=== PATIENT | female | born 1945 | race African-American/Black ===

== ENCOUNTER 2022-08-26 19:41 | Inpatient (IN) | payer OTHER ==
[~2022-08-26] VITALS: Ht 154.9 cm; Wt 49.4 kg
[2022-08-26 19:52] VITALS: BP_SYST 147
[2022-08-26 21:12] LABS: ANION GAP -1 (5-15); CALCIUM 9.2 mg/dL (8.4-11.0); CHLORIDE 96 mmol/L (98-107); CREATININE 1.28 mg/dL (0.55-1.30); GLUCOSE 84 mg/dL (70-99); UREA NITROGEN, BLOOD 10 mg/dL (8-21)
[2022-08-26 21:13] LABS: BASOPHILS % (AUTO) 1.1 % (0.0-2.0); EOSINOPHILS % (AUTO) 0.7 % (0.0-4.0); HEMATOCRIT 22.8 % (36-48); HEMOGLOBIN 7.9 g/dL (12.0-16.0); LYMPHOCYTES # (AUTO) 0.5 K/uL (1.0-5.5); LYMPHOCYTES % (AUTO) 17.2 % (20.5-51.5); MEAN CORPUSCULAR HEMOGLOBIN 31 pg (27-31); MEAN CORPUSCULAR HGB CONC 35 % (32-36); MEAN CORPUSCULAR VOLUME 90 fL (79.0-98.0); MONOCYTES # (AUTO) 0.3 K/uL (0.0-1.0); MONOCYTES % (AUTO) 11.8 % (1.7-9.3); NEUTROPHILS # (AUTO) 1.9 K/uL (1.8-7.7); NEUTROPHILS % (AUTO) 69.2 % (40.0-70.0); PLATELET COUNT (AUTO) 91 K/uL (130-430); RED BLOOD CELL COUNT(AUTO) 2.52 MIL/uL (4.2-6.2); RED CELL DISTRIBUTION WIDTH 20.2 % (9.0-15.0); WHITE BLOOD COUNT (AUTO) 2.7 K/uL (4.8-10.8)
[2022-08-26 21:16] LABS: ALANINE AMINOTRANSFERASE 9 U/L (12-78); ALBUMIN 2.5 g/dL (3.4-4.8); ASPARTATE AMINOTRANSFERASE 22 U/L (10-37); TOTAL BILIRUBIN 1.2 mg/dL (0.0-1.0)
[2022-08-26] MEDS ORDERED: KCL 20 mEq in 100 mL (PREMIX) 100 ML IV ONE (21:30)
[2022-08-26] MEDS ORDERED: POTASSIUM CHLORIDE 20 MEQ/PKT PACKET PO ONE (21:30)
[2022-08-26 22:00] LABS: INR 1.1 (0.8-1.2); PROTHROMBIN TIME 11.4 SECS (9.5-12.5)
[2022-08-26] MEDS ORDERED: NACL 0.9% 500 ML IV ONE (22:45)
[2022-08-27] MEDS ORDERED: POTASSIUM CHLORIDE 20 MEQ/PKT PACKET PO ONE (00:30)
[2022-08-27] MEDS ORDERED: POTASSIUM CHLORIDE 20 MEQ in NS 250 ML IV ONE ×4 (00:30)
[2022-08-27] MEDS ORDERED: TRIA1TAB96 PO (01:12)
[2022-08-27] MEDS ORDERED: PRO40 PO (01:12)
[2022-08-27] MEDS ORDERED: ISOS20TA8 (01:12)
[2022-08-27] MEDS ORDERED: MAGN400T29 PO (01:12)
[2022-08-27] MEDS ORDERED: ACET160L47 PO (01:12)
[2022-08-27] MEDS ORDERED: MIRT-114 PO (01:12)
[2022-08-27] MEDS ORDERED: DOCU100T10 PO (01:12)
[2022-08-27] MEDS ORDERED: AMLO5TAB4 PO (01:12)
[2022-08-27] MEDS ORDERED: FLUT16SP16 NAS (01:12)
[2022-08-27] MEDS ORDERED: HYDR100T25 PO (01:12)
[2022-08-27] MEDS ORDERED: ATEN-168 PO (01:12)
[2022-08-27] MEDS ORDERED: AZEL6DRO5 BOTH EYES (01:12)
[2022-08-27] MEDS ORDERED: HYDR15SO5 PO (01:12)
[2022-08-27] MEDS ORDERED: ONDA8TAB9 PO (01:12)
[2022-08-27] MEDS ORDERED: PROC-14 PO (01:12)
[2022-08-27] MEDS ORDERED: PRED-531 PO (01:12)
[2022-08-27] MEDS ORDERED: LIP40 PO (01:12)
[2022-08-27] MEDS ORDERED: KCL 20 mEq in 100 mL (PREMIX) 100 ML IV ONE ×2 (01:30→03:30)
[2022-08-27] MEDS: NACL 0.9% 1,000 ML IV SCH ×2 (01:47→22:49)
[2022-08-27 04:54] VITALS: BP_SYST 158
[2022-08-27 07:34] LABS: ANION GAP 3 (5-15); CALCIUM 9.2 mg/dL (8.4-11.0); CHLORIDE 97 mmol/L (98-107); CREATININE 1.16 mg/dL (0.55-1.30); GLUCOSE 74 mg/dL (70-99); UREA NITROGEN, BLOOD 10 mg/dL (8-21)
[2022-08-27 07:43] LABS: BASOPHILS % (AUTO) 0.8 % (0.0-2.0); EOSINOPHILS % (AUTO) 0.5 % (0.0-4.0); HEMATOCRIT 28.9 % (36-48); HEMOGLOBIN 9.8 g/dL (12.0-16.0); LYMPHOCYTES # (AUTO) 0.6 K/uL (1.0-5.5); MEAN CORPUSCULAR HEMOGLOBIN 31 pg (27-31); MEAN CORPUSCULAR HGB CONC 34 % (32-36); MEAN CORPUSCULAR VOLUME 91 fL (79.0-98.0); MONOCYTES # (AUTO) 0.4 K/uL (0.0-1.0); MONOCYTES % (AUTO) 11.9 % (1.7-9.3); NEUTROPHILS # (AUTO) 2.2 K/uL (1.8-7.7); NEUTROPHILS % (AUTO) 67.8 % (40.0-70.0); PLATELET COUNT (AUTO) 94 K/uL (130-430); RED BLOOD CELL COUNT(AUTO) 3.19 MIL/uL (4.2-6.2); RED CELL DISTRIBUTION WIDTH 20.1 % (9.0-15.0)
[2022-08-27 08:01] LABS: WHITE BLOOD COUNT (AUTO) 3.3 K/uL (4.8-10.8)
[2022-08-27] MEDS ORDERED: PROCHLORPERAZINE MALEATE 10 MG TABLET PO PRN (10:00)
[2022-08-27] MEDS ORDERED: ACETAMINOPHEN 650 MG/20.3 ML UDC PO PRN (10:45)
[2022-08-27] MEDS ORDERED: ONDANSETRON 4 MG ODT TAB PO PRN (10:45)
[2022-08-27] MEDS ORDERED: amLODIPine BESYLATE 5 MG TABLET PO ONE (11:00)
[2022-08-27] MEDS ORDERED: predniSONE 20 MG TABLET PO ONE (11:00)
[2022-08-27] MEDS ORDERED: TRIAMTERENE/HYDROCHLOROTHIAZID 1 CAP CAPSULE (DYAZIDE37.5/25) PO ONE (11:00)
[2022-08-27] MEDS ORDERED: hydrALAZINE HCL 25 MG TABLET PO ONE (11:00)
[2022-08-27] MEDS ORDERED: ATENOLOL 50 MG TABLET (TENORMIN) PO ONE (11:00)
[2022-08-27] MEDS ORDERED: DOCUSATE SODIUM 100 MG CAPSULE PO ONE (11:00)
[2022-08-27] MEDS ORDERED: ATORVASTATIN 20 MG TABLET PO ONE (11:00)
[2022-08-27 13:44] VITALS: BP_SYST 159
[2022-08-27 16:00] VITALS: BP_SYST 105
[2022-08-27] MEDS: MIRTAZAPINE 15 MG TABLET PO SCH (17:25)
[2022-08-27 20:00] VITALS: BP_SYST 129
[2022-08-27] MEDS: predniSONE 20 MG TABLET PO SCH (22:51)
[2022-08-27] MEDS: FLUTICASONE PROPIONATE 50 mCg/SPRAY 16 GM NAS SCH (22:51)
[2022-08-27] MEDS: MAGNESIUM OXIDE 400 MG TABLET PO SCH (23:02)
[2022-08-28 00:29] VITALS: BP_SYST 138
[2022-08-28 07:38] LABS: ANION GAP 2 (5-15); CALCIUM 8.8 mg/dL (8.4-11.0); CHLORIDE 98 mmol/L (98-107); CREATININE 1.69 mg/dL (0.55-1.30); GLUCOSE 77 mg/dL (70-99); TOTAL IRON BIND. CAPACITY 95 ug/dL (250-450); UREA NITROGEN, BLOOD 12 mg/dL (8-21)
[2022-08-28 08:00] VITALS: BP_SYST 137
[2022-08-28 08:01] LABS: BASOPHILS % (AUTO) 0.5 % (0.0-2.0); HEMATOCRIT 27.2 % (36-48); HEMOGLOBIN 9.3 g/dL (12.0-16.0); LYMPHOCYTES # (AUTO) 0.5 K/uL (1.0-5.5); LYMPHOCYTES % (AUTO) 15.5 % (20.5-51.5); MEAN CORPUSCULAR HEMOGLOBIN 31 pg (27-31); MEAN CORPUSCULAR HGB CONC 34 % (32-36); MEAN CORPUSCULAR VOLUME 90 fL (79.0-98.0); MONOCYTES # (AUTO) 0.4 K/uL (0.0-1.0); MONOCYTES % (AUTO) 12.7 % (1.7-9.3); NEUTROPHILS # (AUTO) 2.3 K/uL (1.8-7.7); NEUTROPHILS % (AUTO) 71.3 % (40.0-70.0); PLATELET COUNT (AUTO) 106 K/uL (130-430); RED BLOOD CELL COUNT(AUTO) 3.02 MIL/uL (4.2-6.2); RED CELL DISTRIBUTION WIDTH 20.2 % (9.0-15.0); RETICULOCYTE COUNT 1.3 % (0.5-1.5)
[2022-08-28] MEDS: PATIENT'S OWN TOPICAL OP SCH (09:00)
[2022-08-28] MEDS ORDERED: NON-FORMULARY MEDICATION (Azelastine Hcl 1 DROP) BOTH EYES SCH (09:00)
[2022-08-28] MEDS: TRIAMTERENE/HYDROCHLOROTHIAZID 1 CAP CAPSULE (DYAZIDE37.5/25) PO SCH (09:11)
[2022-08-28] MEDS: ATORVASTATIN 20 MG TABLET PO SCH (09:12)
[2022-08-28] MEDS: amLODIPine BESYLATE 5 MG TABLET PO SCH (09:12)
[2022-08-28] MEDS: ATENOLOL 50 MG TABLET (TENORMIN) PO SCH (09:13)
[2022-08-28] MEDS: hydrALAZINE HCL 25 MG TABLET PO SCH (09:13)
[2022-08-28] MEDS: PANTOPRAZOLE SODIUM 40 MG TAB PO SCH (09:14)
[2022-08-28] MEDS: DOCUSATE SODIUM 100 MG CAPSULE PO SCH (09:14)
[2022-08-28] MEDS: predniSONE 20 MG TABLET PO SCH ×2 (09:15→21:58)
[2022-08-28] MEDS: MAGNESIUM OXIDE 400 MG TABLET PO SCH ×2 (09:15→21:58)
[2022-08-28] MEDS: FLUTICASONE PROPIONATE 50 mCg/SPRAY 16 GM NAS SCH ×2 (09:35→21:57)
[2022-08-28 10:04] LABS: WHITE BLOOD COUNT (AUTO) 3.2 K/uL (4.8-10.8)
[2022-08-28 12:00] VITALS: BP_SYST 98
[2022-08-28 16:00] VITALS: BP_SYST 101
[2022-08-28] MEDS: NACL 0.9% 1,000 ML IV SCH (16:30)
[2022-08-28] MEDS: MIRTAZAPINE 15 MG TABLET PO SCH (17:46)
[2022-08-28 20:00] VITALS: BP_SYST 138
[2022-08-28] MEDS: guaiFENesin ER 600 MG TAB PO SCH (21:58)
[2022-08-29] VITALS: BP_SYST 123
[2022-08-29 07:22] LABS: BASOPHILS % (AUTO) 0.3 % (0.0-2.0); HEMATOCRIT 27.7 % (36-48); HEMOGLOBIN 9.5 g/dL (12.0-16.0); LYMPHOCYTES # (AUTO) 0.5 K/uL (1.0-5.5); LYMPHOCYTES % (AUTO) 14.4 % (20.5-51.5); MEAN CORPUSCULAR HEMOGLOBIN 31 pg (27-31); MEAN CORPUSCULAR HGB CONC 34 % (32-36); MEAN CORPUSCULAR VOLUME 91 fL (79.0-98.0); MONOCYTES # (AUTO) 0.3 K/uL (0.0-1.0); MONOCYTES % (AUTO) 9.1 % (1.7-9.3); NEUTROPHILS # (AUTO) 2.7 K/uL (1.8-7.7); NEUTROPHILS % (AUTO) 76.2 % (40.0-70.0); PLATELET COUNT (AUTO) 112 K/uL (130-430); RED BLOOD CELL COUNT(AUTO) 3.06 MIL/uL (4.2-6.2); RED CELL DISTRIBUTION WIDTH 20.3 % (9.0-15.0); WHITE BLOOD COUNT (AUTO) 3.6 K/uL (4.8-10.8)
[2022-08-29 08:05] VITALS: BP_SYST 145
[2022-08-29 08:06] LABS: FOLATE (FOLIC ACID) 6.4 ng/mL (>3.0)
[2022-08-29] MEDS: FLUTICASONE PROPIONATE 50 mCg/SPRAY 16 GM NAS SCH ×2 (09:00→21:35)
[2022-08-29] MEDS: PATIENT'S OWN TOPICAL OP SCH (09:00)
[2022-08-29] MEDS: TRIAMTERENE/HYDROCHLOROTHIAZID 1 CAP CAPSULE (DYAZIDE37.5/25) PO SCH (09:00)
[2022-08-29] MEDS: ATORVASTATIN 20 MG TABLET PO SCH (09:12)
[2022-08-29] MEDS: PANTOPRAZOLE SODIUM 40 MG TAB PO SCH (09:13)
[2022-08-29] MEDS: ENOXAPARIN SODIUM 30 MG/0.3 ML SYRINGE SUBCUT SCH (09:13)
[2022-08-29] MEDS: DOCUSATE SODIUM 100 MG CAPSULE PO SCH (09:17)
[2022-08-29] MEDS: hydrALAZINE HCL 25 MG TABLET PO SCH (09:17)
[2022-08-29] MEDS: ATENOLOL 50 MG TABLET (TENORMIN) PO SCH (09:18)
[2022-08-29] MEDS: guaiFENesin ER 600 MG TAB PO SCH ×2 (09:19→21:32)
[2022-08-29] MEDS: MAGNESIUM OXIDE 400 MG TABLET PO SCH ×2 (09:19→21:33)
[2022-08-29] MEDS: predniSONE 20 MG TABLET PO SCH ×2 (09:20→21:32)
[2022-08-29] MEDS: amLODIPine BESYLATE 5 MG TABLET PO SCH (09:21)
[2022-08-29 11:29] VITALS: BP_SYST 93
[2022-08-29] MEDS: NACL 0.9% 1,000 ML IV SCH (16:12)
[2022-08-29 16:57] VITALS: BP_SYST 104
[2022-08-29] MEDS: MIRTAZAPINE 15 MG TABLET PO SCH (17:36)
[2022-08-29 20:00] VITALS: BP_SYST 114
[2022-08-30 00:11] VITALS: BP_SYST 110
[2022-08-30 08:00] VITALS: BP_SYST 118
[2022-08-30] MEDS: amLODIPine BESYLATE 5 MG TABLET PO SCH (09:00)
[2022-08-30] MEDS: PATIENT'S OWN TOPICAL OP SCH (09:00)
[2022-08-30] MEDS: hydrALAZINE HCL 25 MG TABLET PO SCH (09:00)
[2022-08-30] MEDS: ATENOLOL 50 MG TABLET (TENORMIN) PO SCH (09:00)
[2022-08-30] MEDS: predniSONE 20 MG TABLET PO SCH ×2 (09:03→20:43)
[2022-08-30] MEDS: PANTOPRAZOLE SODIUM 40 MG TAB PO SCH (09:03)
[2022-08-30] MEDS: MAGNESIUM OXIDE 400 MG TABLET PO SCH ×2 (09:04→20:43)
[2022-08-30] MEDS: ATORVASTATIN 20 MG TABLET PO SCH (09:05)
[2022-08-30] MEDS: TRIAMTERENE/HYDROCHLOROTHIAZID 1 CAP CAPSULE (DYAZIDE37.5/25) PO SCH (09:06)
[2022-08-30] MEDS: guaiFENesin ER 600 MG TAB PO SCH ×2 (09:06→20:43)
[2022-08-30 09:21] LABS: CHLORIDE 102 mmol/L (98-107)
[2022-08-30] MEDS: ENOXAPARIN SODIUM 30 MG/0.3 ML SYRINGE SUBCUT SCH (09:22)
[2022-08-30 09:52] LABS: ANION GAP 8 (5-15); CALCIUM 8.4 mg/dL (8.4-11.0); GLUCOSE 78 mg/dL (70-99); UREA NITROGEN, BLOOD 29 mg/dL (8-21)
[2022-08-30] MEDS: FLUTICASONE PROPIONATE 50 mCg/SPRAY 16 GM NAS SCH ×2 (09:54→20:42)
[2022-08-30] MEDS: DOCUSATE SODIUM 100 MG CAPSULE PO SCH (09:57)
[2022-08-30 10:37] LABS: CREATININE 3.96 mg/dL (0.55-1.30)
[2022-08-30 11:25] VITALS: BP_SYST 120
[2022-08-30 16:25] VITALS: BP_SYST 108; BP_SYST 111
[2022-08-30] MEDS: MIRTAZAPINE 15 MG TABLET PO SCH (17:48)
[2022-08-30 20:00] VITALS: BP_SYST 114
[2022-08-31] VITALS: BP_SYST 111
[2022-08-31 06:49] LABS: BASOPHILS % (AUTO) 0.2 % (0.0-2.0); EOSINOPHILS % (AUTO) 0.3 % (0.0-4.0); HEMATOCRIT 27.9 % (36-48); HEMOGLOBIN 9.2 g/dL (12.0-16.0); LYMPHOCYTES # (AUTO) 0.6 K/uL (1.0-5.5); LYMPHOCYTES % (AUTO) 13.2 % (20.5-51.5); MEAN CORPUSCULAR HEMOGLOBIN 30 pg (27-31); MEAN CORPUSCULAR HGB CONC 33 % (32-36); MEAN CORPUSCULAR VOLUME 91 fL (79.0-98.0); MONOCYTES # (AUTO) 0.4 K/uL (0.0-1.0); MONOCYTES % (AUTO) 8.7 % (1.7-9.3); NEUTROPHILS # (AUTO) 3.2 K/uL (1.8-7.7); NEUTROPHILS % (AUTO) 77.6 % (40.0-70.0); PLATELET COUNT (AUTO) 128 K/uL (130-430); RED BLOOD CELL COUNT(AUTO) 3.06 MIL/uL (4.2-6.2); RED CELL DISTRIBUTION WIDTH 20.9 % (9.0-15.0); WHITE BLOOD COUNT (AUTO) 4.2 K/uL (4.8-10.8)
[2022-08-31 07:00] LABS: ANION GAP 10 (5-15); CALCIUM 8.5 mg/dL (8.4-11.0); CHLORIDE 102 mmol/L (98-107); CREATININE 3.85 mg/dL (0.55-1.30); GLUCOSE 63 mg/dL (70-99); PHOSPHORUS 4.5 mg/dL (2.7-4.5); UREA NITROGEN, BLOOD 34 mg/dL (8-21)
[2022-08-31 08:00] VITALS: BP_SYST 107
[2022-08-31] MEDS: predniSONE 20 MG TABLET PO SCH ×2 (09:00→21:00)
[2022-08-31] MEDS: PANTOPRAZOLE SODIUM 40 MG TAB PO SCH (09:00)
[2022-08-31] MEDS: hydrALAZINE HCL 25 MG TABLET PO SCH (09:00)
[2022-08-31] MEDS: MAGNESIUM OXIDE 400 MG TABLET PO SCH ×2 (09:00→21:00)
[2022-08-31] MEDS: amLODIPine BESYLATE 5 MG TABLET PO SCH (09:00)
[2022-08-31] MEDS: guaiFENesin ER 600 MG TAB PO SCH ×2 (09:00→21:00)
[2022-08-31] MEDS: ATORVASTATIN 20 MG TABLET PO SCH (09:00)
[2022-08-31] MEDS: DOCUSATE SODIUM 100 MG CAPSULE PO SCH (09:00)
[2022-08-31] MEDS: ATENOLOL 50 MG TABLET (TENORMIN) PO SCH (09:00)
[2022-08-31] MEDS: PATIENT'S OWN TOPICAL OP SCH (09:00)
[2022-08-31 10:21] LABS: BILIRUBIN,URINE NEGATIVE (NEGATIVE); BLOOD, URINE NEGATIVE (NEGATIVE); CLARITY/URINE CLEAR (CLEAR); COLOR,URINE YELLOW (YELLOW); GLUCOSE,URINE NEGATIVE (NEGATIVE); KETONES,URINE TRACE (NEGATIVE); LEUKOCYTE ESTERASE ,URINE 1+ (NEGATIVE); NITRITE, URINE NEGATIVE (NEGATIVE); PH,URINE 6.5 (5.0-8.0); PROTEIN URINE NEGATIVE (NEGATIVE); UROBILINOGEN,URINE 0.2 (0.2-1.0)
[2022-08-31] MEDS: FLUTICASONE PROPIONATE 50 mCg/SPRAY 16 GM NAS SCH ×2 (10:21→21:11)
[2022-08-31] MEDS: ENOXAPARIN SODIUM 30 MG/0.3 ML SYRINGE SUBCUT SCH (10:21)
[2022-08-31 11:01] LABS: BACTERIA,URINE FEW /HPF (None Seen); MUCUS,URINE None Seen /LPF (None Seen); RBC,URINE 0-3 /HPF (0-3); WBC,URINE 0-3 /HPF (0-3)
[2022-08-31] MEDS: NACL 0.9% 1,000 ML IV SCH (11:21)
[2022-08-31 12:29] VITALS: BP_SYST 138
[2022-08-31] MEDS ORDERED: POTASSIUM CHLORIDE 40 MEQ in NS 250 ML IV ONE (16:00)
[2022-08-31 16:25] VITALS: BP_SYST 123
[2022-08-31] MEDS: MIRTAZAPINE 15 MG TABLET PO SCH (17:33)
[2022-08-31 20:00] VITALS: BP_SYST 135
[2022-08-31] MEDS: levoFLOXacin 250 MG TABLET PO SCH (21:00)
[2022-08-31 21:14] LABS: URINE SODIUM, RANDOM 110 mmol/L (40-220)
[2022-09-01 00:55] VITALS: BP_SYST 136
[2022-09-01 06:18] LABS: BASOPHILS % (AUTO) 0.3 % (0.0-2.0); EOSINOPHILS % (AUTO) 0.4 % (0.0-4.0); HEMATOCRIT 26.7 % (36-48); LYMPHOCYTES # (AUTO) 0.5 K/uL (1.0-5.5); LYMPHOCYTES % (AUTO) 15.4 % (20.5-51.5); MEAN CORPUSCULAR HEMOGLOBIN 31 pg (27-31); MEAN CORPUSCULAR HGB CONC 34 % (32-36); MEAN CORPUSCULAR VOLUME 91 fL (79.0-98.0); MONOCYTES # (AUTO) 0.3 K/uL (0.0-1.0); MONOCYTES % (AUTO) 10.3 % (1.7-9.3); NEUTROPHILS # (AUTO) 2.5 K/uL (1.8-7.7); NEUTROPHILS % (AUTO) 73.6 % (40.0-70.0); PLATELET COUNT (AUTO) 118 K/uL (130-430); RED BLOOD CELL COUNT(AUTO) 2.92 MIL/uL (4.2-6.2); RED CELL DISTRIBUTION WIDTH 20.6 % (9.0-15.0); WHITE BLOOD COUNT (AUTO) 3.4 K/uL (4.8-10.8)
[2022-09-01 07:27] LABS: ANION GAP 9 (5-15); CALCIUM 7.9 mg/dL (8.4-11.0); CHLORIDE 105 mmol/L (98-107); CREATININE 3.37 mg/dL (0.55-1.30); GLUCOSE 51 mg/dL (70-99); UREA NITROGEN, BLOOD 36 mg/dL (8-21)
[2022-09-01 08:00] VITALS: BP_SYST 138
[2022-09-01] MEDS ORDERED: POTASSIUM CHLORIDE 40 MEQ in NS 250 ML IV ONE (08:00)
[2022-09-01] MEDS: MAGNESIUM OXIDE 400 MG TABLET PO SCH ×2 (09:00→21:00)
[2022-09-01] MEDS: predniSONE 20 MG TABLET PO SCH ×2 (09:00→21:00)
[2022-09-01] MEDS: guaiFENesin ER 600 MG TAB PO SCH ×2 (09:00→21:00)
[2022-09-01] MEDS: DOCUSATE SODIUM 100 MG CAPSULE PO SCH (09:00)
[2022-09-01] MEDS: PATIENT'S OWN TOPICAL OP SCH (09:00)
[2022-09-01] MEDS: PANTOPRAZOLE SODIUM 40 MG TAB PO SCH (09:00)
[2022-09-01] MEDS: amLODIPine BESYLATE 5 MG TABLET PO SCH (09:00)
[2022-09-01] MEDS: ATENOLOL 50 MG TABLET (TENORMIN) PO SCH (09:00)
[2022-09-01] MEDS: ATORVASTATIN 20 MG TABLET PO SCH (09:00)
[2022-09-01] MEDS: hydrALAZINE HCL 25 MG TABLET PO SCH (09:00)
[2022-09-01] MEDS: ENOXAPARIN SODIUM 30 MG/0.3 ML SYRINGE SUBCUT SCH (09:56)
[2022-09-01] MEDS: NACL 0.9% 1,000 ML IV SCH (09:57)
[2022-09-01] MEDS: FLUTICASONE PROPIONATE 50 mCg/SPRAY 16 GM NAS SCH ×2 (09:58→22:00)
[2022-09-01] MEDS ORDERED: CEFAZOLIN 1 GM IVPB PREMIX 50 ML IV ONE (10:15)
[2022-09-01 12:00] VITALS: BP_SYST 137; BP_SYST 201
[2022-09-01 14:34] VITALS: BP_SYST 138
[2022-09-01] MEDS: D5NS 1,000 ML IV SCH (15:28)
[2022-09-01 16:00] VITALS: BP_SYST 128
[2022-09-01] MEDS ORDERED: DEXTROSE 50% JECT 50 ML DISP.SYRIN IVP ONE ×2 (16:45)
[2022-09-01] MEDS: MIRTAZAPINE 15 MG TABLET PO SCH (19:30)
[2022-09-01] MEDS: levoFLOXacin 250 MG TABLET PO SCH (21:00)
[2022-09-02] VITALS (7 sets, daily range): BP systolic 114–157
[2022-09-02] MEDS: D5NS 1,000 ML IV SCH ×2 (01:53→11:30)
[2022-09-02] MEDS ORDERED: SIMETHICONE 40 MG/0.6 ML ML ONE (06:27)
[2022-09-02 06:49] LABS: ANION GAP 4 (5-15); CHLORIDE 109 mmol/L (98-107); CREATININE 2.41 mg/dL (0.55-1.30); GLUCOSE 109 mg/dL (70-99); UREA NITROGEN, BLOOD 31 mg/dL (8-21)
[2022-09-02 06:55] LABS: BASOPHILS % (AUTO) 0.5 % (0.0-2.0); EOSINOPHILS % (AUTO) 1.7 % (0.0-4.0); HEMOGLOBIN 9.1 g/dL (12.0-16.0); LYMPHOCYTES # (AUTO) 0.4 K/uL (1.0-5.5); LYMPHOCYTES % (AUTO) 17.3 % (20.5-51.5); MEAN CORPUSCULAR HEMOGLOBIN 31 pg (27-31); MEAN CORPUSCULAR HGB CONC 34 % (32-36); MEAN CORPUSCULAR VOLUME 92 fL (79.0-98.0); MONOCYTES # (AUTO) 0.3 K/uL (0.0-1.0); MONOCYTES % (AUTO) 11.1 % (1.7-9.3); NEUTROPHILS # (AUTO) 1.7 K/uL (1.8-7.7); NEUTROPHILS % (AUTO) 69.4 % (40.0-70.0); PLATELET COUNT (AUTO) 116 K/uL (130-430); RED BLOOD CELL COUNT(AUTO) 2.95 MIL/uL (4.2-6.2); RED CELL DISTRIBUTION WIDTH 20.7 % (9.0-15.0); WHITE BLOOD COUNT (AUTO) 2.4 K/uL (4.8-10.8)
[2022-09-02] MEDS ORDERED: ONDANSETRON HCL 4 MG/2 ML VIAL ONE (07:49)
[2022-09-02] MEDS ORDERED: DEXAMETHASONE SOD PHOSPHATE 4 MG/ML VIAL ONE (07:49)
[2022-09-02] MEDS ORDERED: NS 1000 ML IV.SOLN IV ONE (07:49)
[2022-09-02] MEDS ORDERED: hydrALAZINE HCL 20 MG/ML VIAL ONE (07:49)
[2022-09-02] MEDS ORDERED: METOCLOPRAMIDE HCL 10 MG/2 ML VIAL ONE (07:49)
[2022-09-02] MEDS ORDERED: PROPOFOL 200MG/ 20ML VIAL (DIPRIVAN) IV ONE (07:49)
[2022-09-02] MEDS ORDERED: CEFAZOLIN 1 GM IVPB PREMIX 50 ML IV ONE (08:00)
[2022-09-02 08:13] LABS: INR 0.9 (0.8-1.2); PROTHROMBIN TIME 9.9 SECS (9.5-12.5)
[2022-09-02] MEDS ORDERED: hydrALAZINE HCL 20 MG/ML VIAL IVP PRN (08:45)
[2022-09-02] MEDS ORDERED: NACL 0.9% 1,000 ML IV SCH (08:45)
[2022-09-02] MEDS: PATIENT'S OWN TOPICAL OP SCH (09:00)
[2022-09-02] MEDS: DOCUSATE SODIUM 100 MG CAPSULE PO SCH (09:00)
[2022-09-02] MEDS: hydrALAZINE HCL 25 MG TABLET PO SCH (09:00)
[2022-09-02] MEDS: MAGNESIUM OXIDE 400 MG TABLET PO SCH ×2 (09:48→19:56)
[2022-09-02] MEDS: ATORVASTATIN 20 MG TABLET PO SCH (09:49)
[2022-09-02] MEDS: predniSONE 20 MG TABLET PO SCH ×2 (09:49→19:56)
[2022-09-02] MEDS: PANTOPRAZOLE SODIUM 40 MG TAB PO SCH (09:50)
[2022-09-02] MEDS: ENOXAPARIN SODIUM 30 MG/0.3 ML SYRINGE SUBCUT SCH (09:50)
[2022-09-02] MEDS: guaiFENesin ER 600 MG TAB PO SCH ×2 (09:50→19:55)
[2022-09-02] MEDS: ATENOLOL 50 MG TABLET (TENORMIN) PO SCH (09:53)
[2022-09-02] MEDS: amLODIPine BESYLATE 5 MG TABLET PO SCH (09:53)
[2022-09-02] MEDS: FLUTICASONE PROPIONATE 50 mCg/SPRAY 16 GM NAS SCH ×2 (09:55→19:56)
[2022-09-02] MEDS ORDERED: POTASSIUM CHLORIDE 40 MEQ in NS 250 ML IV ONE (15:00)
[2022-09-02] MEDS: MIRTAZAPINE 15 MG TABLET PO SCH (17:48)
[2022-09-02] MEDS: NACL 0.9% 1,000 ML IV SCH (18:45)
[2022-09-02] MEDS: levoFLOXacin 250 MG TABLET PO SCH (19:55)
[2022-09-03 07:00] VITALS: BP_SYST 118
[2022-09-03] MEDS: PANTOPRAZOLE SODIUM 40 MG TAB PO SCH (08:02)
[2022-09-03] MEDS: MAGNESIUM OXIDE 400 MG TABLET PO SCH ×2 (08:03→20:00)
[2022-09-03] MEDS: ATORVASTATIN 20 MG TABLET PO SCH (08:03)
[2022-09-03] MEDS: predniSONE 20 MG TABLET PO SCH ×2 (08:03→20:00)
[2022-09-03] MEDS: guaiFENesin ER 600 MG TAB PO SCH ×2 (08:04→20:01)
[2022-09-03] MEDS: HYDROcodone/ACETAMIN 7.5-325 MG TAB PO PRN (08:07)
[2022-09-03] MEDS: FLUTICASONE PROPIONATE 50 mCg/SPRAY 16 GM NAS SCH ×2 (08:08→20:01)
[2022-09-03 08:10] LABS: BASOPHILS % (AUTO) 0.2 % (0.0-2.0); HEMATOCRIT 29.9 % (36-48); LYMPHOCYTES # (AUTO) 0.5 K/uL (1.0-5.5); LYMPHOCYTES % (AUTO) 11.5 % (20.5-51.5); MEAN CORPUSCULAR HEMOGLOBIN 31 pg (27-31); MEAN CORPUSCULAR HGB CONC 34 % (32-36); MEAN CORPUSCULAR VOLUME 92 fL (79.0-98.0); MONOCYTES # (AUTO) 0.3 K/uL (0.0-1.0); MONOCYTES % (AUTO) 6.5 % (1.7-9.3); NEUTROPHILS # (AUTO) 3.4 K/uL (1.8-7.7); NEUTROPHILS % (AUTO) 81.8 % (40.0-70.0); PLATELET COUNT (AUTO) 147 K/uL (130-430); RED BLOOD CELL COUNT(AUTO) 3.25 MIL/uL (4.2-6.2); RED CELL DISTRIBUTION WIDTH 20.4 % (9.0-15.0); WHITE BLOOD COUNT (AUTO) 4.2 K/uL (4.8-10.8)
[2022-09-03 08:21] LABS: ANION GAP 4 (5-15); CALCIUM 8.1 mg/dL (8.4-11.0); CHLORIDE 109 mmol/L (98-107); CREATININE 2.38 mg/dL (0.55-1.30); GLUCOSE 166 mg/dL (70-99); UREA NITROGEN, BLOOD 30 mg/dL (8-21)
[2022-09-03] MEDS: hydrALAZINE HCL 25 MG TABLET PO SCH (08:27)
[2022-09-03] MEDS: amLODIPine BESYLATE 5 MG TABLET PO SCH (08:27)
[2022-09-03] MEDS: ATENOLOL 50 MG TABLET (TENORMIN) PO SCH (08:28)
[2022-09-03] MEDS: ENOXAPARIN SODIUM 30 MG/0.3 ML SYRINGE SUBCUT SCH (08:30)
[2022-09-03] MEDS: PATIENT'S OWN TOPICAL OP SCH (08:40)
[2022-09-03] MEDS: DOCUSATE SODIUM 100 MG CAPSULE PO SCH (08:40)
[2022-09-03] MEDS ORDERED: POTASSIUM CHLORIDE 20 MEQ/PKT PACKET PO SCH (09:00)
[2022-09-03 12:54] VITALS: BP_SYST 116
[2022-09-03 16:44] VITALS: BP_SYST 115
[2022-09-03] MEDS: NACL 0.9% 1,000 ML IV SCH (18:09)
[2022-09-03] MEDS: MIRTAZAPINE 15 MG TABLET PO SCH (18:18)
[2022-09-03 20:00] VITALS: BP_SYST 147
[2022-09-03] MEDS: levoFLOXacin 250 MG TABLET PO SCH (20:00)
[2022-09-04] VITALS: BP_SYST 144
[2022-09-04] MEDS: HYDROcodone/ACETAMIN 7.5-325 MG TAB PO PRN ×2 (01:40→17:21)
[2022-09-04 07:37] LABS: ANION GAP 5 (5-15); CALCIUM 8.2 mg/dL (8.4-11.0); CHLORIDE 110 mmol/L (98-107); GLUCOSE 157 mg/dL (70-99); UREA NITROGEN, BLOOD 33 mg/dL (8-21)
[2022-09-04 07:59] VITALS: BP_SYST 118
[2022-09-04] MEDS: PATIENT'S OWN TOPICAL OP SCH (09:00)
[2022-09-04] MEDS: PANTOPRAZOLE SODIUM 40 MG TAB PO SCH (09:14)
[2022-09-04] MEDS: ATORVASTATIN 20 MG TABLET PO SCH (09:14)
[2022-09-04] MEDS: guaiFENesin ER 600 MG TAB PO SCH ×2 (09:14→21:20)
[2022-09-04] MEDS: DOCUSATE SODIUM 100 MG CAPSULE PO SCH (09:14)
[2022-09-04] MEDS: predniSONE 20 MG TABLET PO SCH ×2 (09:14→21:20)
[2022-09-04] MEDS: MAGNESIUM OXIDE 400 MG TABLET PO SCH ×2 (09:15→21:20)
[2022-09-04] MEDS: hydrALAZINE HCL 25 MG TABLET PO SCH (09:15)
[2022-09-04] MEDS: ENOXAPARIN SODIUM 30 MG/0.3 ML SYRINGE SUBCUT SCH (09:16)
[2022-09-04] MEDS: ATENOLOL 50 MG TABLET (TENORMIN) PO SCH (09:16)
[2022-09-04] MEDS: amLODIPine BESYLATE 5 MG TABLET PO SCH (09:17)
[2022-09-04 09:18] LABS: HEMATOCRIT 28.2 % (36-48); HEMOGLOBIN 9.4 g/dL (12.0-16.0); MEAN CORPUSCULAR HEMOGLOBIN 31 pg (27-31); MEAN CORPUSCULAR HGB CONC 33 % (32-36); MEAN CORPUSCULAR VOLUME 93 fL (79.0-98.0); PLATELET COUNT (AUTO) 146 K/uL (130-430); RED BLOOD CELL COUNT(AUTO) 3.04 MIL/uL (4.2-6.2); RED CELL DISTRIBUTION WIDTH 21.1 % (9.0-15.0); WHITE BLOOD COUNT (AUTO) 4.1 K/uL (4.8-10.8)
[2022-09-04] MEDS: FLUTICASONE PROPIONATE 50 mCg/SPRAY 16 GM NAS SCH ×2 (09:32→21:21)
[2022-09-04 11:30] VITALS: BP_SYST 148
[2022-09-04 12:18] LABS: BAND % (MANUAL) 1 % (0-6); BASOPHILS % (MANUAL) 0 % (0-2); EOSINOPHILS % (MANUAL) 0 % (0-7); LYMPHOCYTES % (MANUAL) 12 % (20-46); MONOCYTES % (MANUAL) 5 % (0-11)
[2022-09-04 15:25] VITALS: BP_SYST 123
[2022-09-04] MEDS: MIRTAZAPINE 15 MG TABLET PO SCH (17:14)
[2022-09-04] MEDS: NACL 0.9% 1,000 ML IV SCH (17:25)
[2022-09-04] MEDS ORDERED: 0.45% NACL 1,000 ML IV SCH (18:45)
[2022-09-04] MEDS: levoFLOXacin 250 MG TABLET PO SCH (21:20)
[2022-09-04 21:28] VITALS: BP_SYST 124
[2022-09-04] MEDS ORDERED: METOCLOPRAMIDE HCL 10 MG/2 ML VIAL IVP PRN (23:00)
[2022-09-05 01:31] VITALS: BP_SYST 132
[2022-09-05 07:00] VITALS: BP_SYST 122
[2022-09-05 07:32] LABS: ANION GAP 5 (5-15); CALCIUM 8.5 mg/dL (8.4-11.0); CHLORIDE 109 mmol/L (98-107); CREATININE 1.76 mg/dL (0.55-1.30); GLUCOSE 113 mg/dL (70-99); UREA NITROGEN, BLOOD 37 mg/dL (8-21)
[2022-09-05 08:00] LABS: BASOPHILS % (AUTO) 0.1 % (0.0-2.0); HEMOGLOBIN 9.4 g/dL (12.0-16.0); LYMPHOCYTES # (AUTO) 0.4 K/uL (1.0-5.5); LYMPHOCYTES % (AUTO) 10.1 % (20.5-51.5); MEAN CORPUSCULAR HEMOGLOBIN 31 pg (27-31); MEAN CORPUSCULAR HGB CONC 34 % (32-36); MEAN CORPUSCULAR VOLUME 92 fL (79.0-98.0); MONOCYTES # (AUTO) 0.3 K/uL (0.0-1.0); MONOCYTES % (AUTO) 6.2 % (1.7-9.3); NEUTROPHILS # (AUTO) 3.5 K/uL (1.8-7.7); NEUTROPHILS % (AUTO) 83.6 % (40.0-70.0); PLATELET COUNT (AUTO) 136 K/uL (130-430); RED BLOOD CELL COUNT(AUTO) 3.03 MIL/uL (4.2-6.2); RED CELL DISTRIBUTION WIDTH 20.9 % (9.0-15.0); WHITE BLOOD COUNT (AUTO) 4.2 K/uL (4.8-10.8)
[2022-09-05] MEDS: hydrALAZINE HCL 25 MG TABLET PO SCH (11:01)
[2022-09-05] MEDS: guaiFENesin ER 600 MG TAB PO SCH ×2 (11:01→21:18)
[2022-09-05] MEDS: PANTOPRAZOLE SODIUM 40 MG TAB PO SCH (11:01)
[2022-09-05] MEDS: ATENOLOL 50 MG TABLET (TENORMIN) PO SCH (11:02)
[2022-09-05] MEDS: ATORVASTATIN 20 MG TABLET PO SCH (11:02)
[2022-09-05] MEDS: MAGNESIUM OXIDE 400 MG TABLET PO SCH ×2 (11:02→21:18)
[2022-09-05] MEDS: FLUTICASONE PROPIONATE 50 mCg/SPRAY 16 GM NAS SCH ×2 (11:03→21:19)
[2022-09-05] MEDS: ENOXAPARIN SODIUM 30 MG/0.3 ML SYRINGE SUBCUT SCH (11:03)
[2022-09-05] MEDS: amLODIPine BESYLATE 5 MG TABLET PO SCH (11:04)
[2022-09-05] MEDS: DOCUSATE SODIUM 100 MG CAPSULE PO SCH (11:05)
[2022-09-05] MEDS: predniSONE 20 MG TABLET PO SCH ×2 (11:08→21:18)
[2022-09-05 11:20] VITALS: BP_SYST 113
[2022-09-05 16:30] VITALS: BP_SYST 115
[2022-09-05] MEDS: MIRTAZAPINE 15 MG TABLET PO SCH (17:11)
[2022-09-05 20:00] VITALS: BP_SYST 132
[2022-09-05] MEDS: levoFLOXacin 250 MG TABLET PO SCH (21:19)
[2022-09-06 00:26] VITALS: BP_SYST 139
[2022-09-06 07:00] VITALS: BP_SYST 127
[2022-09-06 08:00] VITALS: BP_SYST 127
[2022-09-06] MEDS: hydrALAZINE HCL 25 MG TABLET PO SCH (10:00)
[2022-09-06] MEDS: MAGNESIUM OXIDE 400 MG TABLET PO SCH (10:01)
[2022-09-06] MEDS: DOCUSATE SODIUM 100 MG CAPSULE PO SCH (10:01)
[2022-09-06] MEDS: guaiFENesin ER 600 MG TAB PO SCH (10:01)
[2022-09-06] MEDS: ENOXAPARIN SODIUM 30 MG/0.3 ML SYRINGE SUBCUT SCH (10:02)
[2022-09-06] MEDS: amLODIPine BESYLATE 5 MG TABLET PO SCH (10:02)
[2022-09-06] MEDS: predniSONE 20 MG TABLET PO SCH (10:02)
[2022-09-06] MEDS: PANTOPRAZOLE SODIUM 40 MG TAB PO SCH (10:02)
[2022-09-06] MEDS: FLUTICASONE PROPIONATE 50 mCg/SPRAY 16 GM NAS SCH (10:03)
[2022-09-06] MEDS: ATORVASTATIN 20 MG TABLET PO SCH (10:03)
[2022-09-06] MEDS: ATENOLOL 50 MG TABLET (TENORMIN) PO SCH (10:04)
[2022-09-06 11:06] LABS: CREATININE, URINE 48.4 mg/dL; MICROALBUMIN URINE RANDOM 82.8 ug/ml (NOT ESTABLISHED)
[2022-09-06 12:00] VITALS: BP_SYST 136
[2022-09-06 16:00] VITALS: BP_SYST 97
[2022-09-06] MEDS: MIRTAZAPINE 15 MG TABLET PO SCH (17:42)
[2022-09-06 18:07] VITALS: BP_SYST 127
== END 2022-09-06 23:03 | disposition home health service (06) | DRG 808 ==
LOC: SED 19:41 → STU 08-27 00:20
PROVIDERS: ADMIT Internal Medicine; ATTEND Internal Medicine
PROC: 30233N1 Transfusion of Nonautologous Red Blood Cells into Peripheral Vein, Percutaneous Approach (ICD-10-PCS; 2022-08-27)
PROC: 0DH68UZ Insertion of Feeding Device into Stomach, Via Natural or Artificial Opening Endoscopic (ICD-10-PCS; principal; 2022-09-02 07:30)
DX: D61.810 Antineoplastic chemotherapy induced pancytopenia (principal); E43 Unspecified severe protein-calorie malnutrition; E87.0 Hyperosmolality and hypernatremia; N39.0 Urinary tract infection, site not specified; N17.9 Acute kidney failure, unspecified; E87.6 Hypokalemia; C76.0 Malignant neoplasm of head, face and neck; I10 Essential (primary) hypertension; T45.1X5A Adverse effect of antineoplastic and immunosuppressive drugs, initial encounter; R13.12 Dysphagia, oropharyngeal phase; E78.5 Hyperlipidemia, unspecified; Z20.822 Contact with and (suspected) exposure to COVID-19; E86.0 Dehydration; K29.70 Gastritis, unspecified, without bleeding; T50.2X5A Adverse effect of carbonic-anhydrase inhibitors, benzothiadiazides and other diuretics, initial encounter; Z85.89 Personal history of malignant neoplasm of other organs and systems; Z92.3 Personal history of irradiation; Z79.899 Other long term (current) drug therapy; Y92.89 Other specified places as the place of occurrence of the external cause; Z68.20 Body mass index [BMI] 20.0-20.9, adult
CPT/HCPCS: 36415; 36430; 71045; 76770; 80048; 80053; 81000; 82043; 82570; 82607; 82728; 82746; 82962; 83540; 83550; 83735; 84100; 84302; 85007; 85025; 85027; 85044; 85610-TC; 85730-TC; 86886; 86900; 86901; 86920; 87086; 92610-GN; 96360; 96361; 97110-GP; 97116-GP; 97530-GP; 99285; G0378; J0360; J0690; J1100; J1650; J2405; J2704; J2765; J3480; J7030; J7040; J7042; J7050; J7512; P9021; Q0164

== ENCOUNTER 2022-11-25 19:26 | Inpatient (IN) | payer OTHER ==
[~2022-11-25] VITALS: Ht 157.5 cm; Wt 49.9 kg
[~2022-11-25 19:26] MED LIST: AMLO5TAB4 PO; ATEN-168 PO; AZEL6DRO5 BOTH EYES; DOCU100T10 PO; FLUT16SP16 NAS; HYDR100T25 PO; HYDR15SO5 PO; ISOS20TA8; LIP40 PO; MAGN400T29 PO; MIRT-114 PO; ONDA8TAB9 PO; PRED-531 PO; PRO40 PO; PROC-14 PO; TRIA1TAB96 PO
[2022-11-25 19:56] VITALS: BP_SYST 146
[2022-11-25 20:32] LABS: HEMATOCRIT 23.6 % (36-48); HEMOGLOBIN 8.1 g/dL (12.0-16.0); MEAN CORPUSCULAR HEMOGLOBIN 31 pg (27-31); MEAN CORPUSCULAR HGB CONC 35 % (32-36); MEAN CORPUSCULAR VOLUME 89 fL (79.0-98.0); PLATELET COUNT (AUTO) 173 K/uL (130-430); RED BLOOD CELL COUNT(AUTO) 2.64 MIL/uL (4.2-6.2); RED CELL DISTRIBUTION WIDTH 16.7 % (9.0-15.0); WHITE BLOOD COUNT (AUTO) 3.2 K/uL (4.8-10.8)
[2022-11-25 20:42] LABS: ANION GAP 3 (5-15); CALCIUM 9.5 mg/dL (8.4-11.0); CHLORIDE 89 mmol/L (98-107); CREATININE 1.05 mg/dL (0.55-1.30); GLUCOSE 93 mg/dL (70-99); UREA NITROGEN, BLOOD 35 mg/dL (8-21)
[2022-11-25 20:46] LABS: ATYPICAL LYMPHOCYTES % 4 % (0-0); BAND % (MANUAL) 0 % (0-6); BASOPHILS % (MANUAL) 0 % (0-2); EOSINOPHILS % (MANUAL) 4 % (0-7); LYMPHOCYTES % (MANUAL) 18 % (20-46); MONOCYTES % (MANUAL) 19 % (0-11)
[2022-11-25 20:53] LABS: ALANINE AMINOTRANSFERASE 13 U/L (12-78); ALBUMIN 3.2 g/dL (3.4-4.8); ASPARTATE AMINOTRANSFERASE 14 U/L (10-37); TOTAL BILIRUBIN 0.4 mg/dL (0.0-1.0)
[2022-11-25] MEDS ORDERED: NACL 0.9% 1,000 ML IV ONE (21:00)
[2022-11-26 00:04] LABS: BILIRUBIN,URINE NEGATIVE (NEGATIVE); BLOOD, URINE NEGATIVE (NEGATIVE); CLARITY/URINE CLEAR (CLEAR); COLOR,URINE YELLOW (YELLOW); GLUCOSE,URINE NEGATIVE (NEGATIVE); KETONES,URINE NEGATIVE (NEGATIVE); LEUKOCYTE ESTERASE ,URINE NEGATIVE (NEGATIVE); NITRITE, URINE NEGATIVE (NEGATIVE); PH,URINE 7.5 (5.0-8.0); PROTEIN URINE NEGATIVE (NEGATIVE); UROBILINOGEN,URINE 0.2 (0.2-1.0)
[2022-11-26] MEDS ORDERED: SODIUM CHLORIDE 3% *HI-ALERT* 250 ML IV ONE (12:15)
[2022-11-26] MEDS ORDERED: PANTOPRAZOLE SODIUM 40 MG TAB PO ONE (12:15)
[2022-11-26 12:39] LABS: ANION GAP 4 (5-15); CALCIUM 9.7 mg/dL (8.4-11.0); CHLORIDE 95 mmol/L (98-107); CREATININE 0.84 mg/dL (0.55-1.30); GLUCOSE 89 mg/dL (70-99); UREA NITROGEN, BLOOD 26 mg/dL (8-21)
[2022-11-26 12:42] LABS: TOTAL IRON BIND. CAPACITY 207 ug/dL (250-450)
[2022-11-26 22:27] VITALS: BP_SYST 131
[2022-11-27 01:00] VITALS: BP_SYST 131
[2022-11-27 07:32] LABS: ANION GAP 8 (5-15); CALCIUM 9.7 mg/dL (8.4-11.0); CHLORIDE 100 mmol/L (98-107); CREATININE 0.79 mg/dL (0.55-1.30); GLUCOSE 91 mg/dL (70-99); UREA NITROGEN, BLOOD 24 mg/dL (8-21)
[2022-11-27 08:43] VITALS: BP_SYST 151
[2022-11-27 12:30] VITALS: BP_SYST 148
[2022-11-27 16:00] VITALS: BP_SYST 150
[2022-11-27] MEDS: SOD FERRIC GLUC COMPLEX/SUC 125 MG in NS 100 ML IV SCH (17:52)
[2022-11-27 20:00] VITALS: BP_SYST 144
[2022-11-28 01:00] VITALS: BP_SYST 159
[2022-11-28 07:00] LABS: BASOPHILS # (AUTO) 0.1 K/uL (0.0-0.2); BASOPHILS % (AUTO) 1.2 % (0.0-2.0); EOSINOPHILS # (AUTO) 0.3 K/uL (0.0-0.4); EOSINOPHILS % (AUTO) 5.5 % (0.0-4.0); HEMATOCRIT 23.7 % (36-48); HEMOGLOBIN 8.1 g/dL (12.0-16.0); LYMPHOCYTES # (AUTO) 0.5 K/uL (1.0-5.5); LYMPHOCYTES % (AUTO) 11.3 % (20.5-51.5); MEAN CORPUSCULAR HEMOGLOBIN 31 pg (27-31); MEAN CORPUSCULAR HGB CONC 34 % (32-36); MEAN CORPUSCULAR VOLUME 90 fL (79.0-98.0); MONOCYTES # (AUTO) 0.7 K/uL (0.0-1.0); MONOCYTES % (AUTO) 13.8 % (1.7-9.3); NEUTROPHILS # (AUTO) 3.3 K/uL (1.8-7.7); NEUTROPHILS % (AUTO) 68.2 % (40.0-70.0); PLATELET COUNT (AUTO) 169 K/uL (130-430); RED BLOOD CELL COUNT(AUTO) 2.64 MIL/uL (4.2-6.2); RED CELL DISTRIBUTION WIDTH 16.5 % (9.0-15.0); WHITE BLOOD COUNT (AUTO) 4.8 K/uL (4.8-10.8)
[2022-11-28 09:34] VITALS: BP_SYST 146
[2022-11-28 11:54] LABS: ANION GAP 6 (5-15); CALCIUM 9.9 mg/dL (8.4-11.0); CHLORIDE 101 mmol/L (98-107); CREATININE 0.83 mg/dL (0.55-1.30); GLUCOSE 92 mg/dL (70-99); UREA NITROGEN, BLOOD 21 mg/dL (8-21)
[2022-11-28] MEDS: SOD FERRIC GLUC COMPLEX/SUC 125 MG in NS 100 ML IV SCH (14:45)
[2022-11-28 16:23] VITALS: BP_SYST 160
== END 2022-11-28 17:15 | disposition home or self-care (01) | DRG 641 ==
LOC: SED 19:26 → STU 21:41
PROVIDERS: ADMIT Internal Medicine; ATTEND Internal Medicine
DX: E87.1 Hypo-osmolality and hyponatremia (principal); E44.1 Mild protein-calorie malnutrition; R62.7 Adult failure to thrive; R13.10 Dysphagia, unspecified; I10 Essential (primary) hypertension; F03.90 Unspecified dementia, unspecified severity, without behavioral disturbance, psychotic disturbance, mood disturbance, and anxiety; E78.5 Hyperlipidemia, unspecified; Z79.899 Other long term (current) drug therapy; Z68.20 Body mass index [BMI] 20.0-20.9, adult; Z85.89 Personal history of malignant neoplasm of other organs and systems; Z93.1 Gastrostomy status
CPT/HCPCS: 36415; 71045; 80048; 80053; 81003; 82550; 83540; 83550; 83605; 85007; 85025; 85027; 87040; 87086; 92610-GN; 93005; 96360; 99285; G0378; J2916; J3490

== ENCOUNTER 2023-05-31 16:08 | Inpatient (IN) | payer OTHER, MEDICAID ==
[~2023-05-31] VITALS: Ht 157.5 cm; Wt 49.9 kg
[~2023-05-31 16:08] MED LIST changes: -TRIA1TAB96 PO
--- NOTE | 2023-05-31 16:18 | NUR ---
Placed in room 01 . Placed on cardiac cath technician, blood pressure machine and pulse oximeter. To gown for exam. Side rails up.
--- NOTE | 2023-05-31 16:20 | NUR ---
DR. PAVON AT BEDSIDE TO ASSESS PT. RECEIVED PT FROM JUJU ARREOLA. ALL QUESTIONS AND CONCERNS ADDRESSED.
[2023-05-31 16:24] VITALS: BP_SYST 170; PULSE 72; RESP 22; TEMP 98.3; O2SAT 96
--- NOTE | 2023-05-31 16:30 | NUR ---
# 20 gauge angiocath placed to LEFT UPPER ARM. Use of asceptic technique. Opsite placed over site. Blood return noted. Blood for lab drawn from site. Flushed with 10 cc of normal saline. No evidence of infiltration noted. Patient tolerated well.
[2023-05-31 17:19] LABS: BASOPHILS % (AUTO) 0.5 % (0.0-2.0); EOSINOPHILS % (AUTO) 0.5 % (0.0-4.0); HEMATOCRIT 27.7 % (36-48); HEMOGLOBIN 9.2 g/dL (12.0-16.0); LYMPHOCYTES # (AUTO) 1.2 K/uL (1.0-5.5); LYMPHOCYTES % (AUTO) 25.7 % (20.5-51.5); MEAN CORPUSCULAR HEMOGLOBIN 30 pg (27-31); MEAN CORPUSCULAR HGB CONC 33 % (32-36); MEAN CORPUSCULAR VOLUME 90 fL (79.0-98.0); MONOCYTES # (AUTO) 0.6 K/uL (0.0-1.0); MONOCYTES % (AUTO) 13.4 % (1.7-9.3); NEUTROPHILS # (AUTO) 2.9 K/uL (1.8-7.7); NEUTROPHILS % (AUTO) 59.9 % (40.0-70.0); PLATELET COUNT (AUTO) 122 K/uL (130-430); RED BLOOD CELL COUNT(AUTO) 3.08 MIL/uL (4.2-6.2); WHITE BLOOD COUNT (AUTO) 4.8 K/uL (4.8-10.8)
[2023-05-31] MEDS ORDERED: NACL 0.9% 1,000 ML IV ONE (17:30)
[2023-05-31] MEDS ORDERED: TRANEXAMIC ACID 1,000 MG/10 ML VIAL IV ONE ×2 (17:30→18:15)
[2023-05-31 17:33] LABS: PROTHROMBIN TIME 10.8 SECS (9.5-12.5)
[2023-05-31 17:44] LABS: ALANINE AMINOTRANSFERASE 26 U/L (12-78); ALBUMIN 3.2 g/dL (3.4-4.8); ANION GAP 4 (5-15); ASPARTATE AMINOTRANSFERASE 23 U/L (10-37); CALCIUM 8.6 mg/dL (8.4-11.0); CHLORIDE 86 mmol/L (98-107); CREATININE 0.79 mg/dL (0.55-1.30); GLUCOSE 95 mg/dL (74-106); PHOSPHORUS 3.3 mg/dL (2.7-4.5); TOTAL BILIRUBIN 0.4 mg/dL (0.0-1.0); UREA NITROGEN, BLOOD 25 mg/dL (8-21)
--- NOTE | 2023-05-31 18:00 | NUR ---
PT TAKEN TO CT SCAN, PT WAS LAYED FLAT AND BEGAN VOMITING BLOOD. PT BROUGHT BACK TO BED 1. PT SAT UP IN HIGH FOWLERS AT BEDSIDE AND IS BEING SUCTIONED AT THIS TIME. PT HAD 2000ML BRIGHT RED BLOOD OUT.
[2023-05-31] MEDS ORDERED: iohexoL 350 mgI/mL, 100 ML INFUS..BTL IV ONE (18:02)
--- NOTE | 2023-05-31 18:10 | NUR ---
# 20 gauge angiocath placed to LFA. Use of asceptic technique. Opsite placed over site. Blood return noted. Flushed with 10 cc of normal saline. No evidence of infiltration noted. Patient tolerated well.
[2023-05-31] MEDS ORDERED: TRANEXAMIC ACID 1,000 MG in NS 50 ML IV ONE (18:15)
[2023-05-31] MEDS ORDERED: ONDANSETRON HCL 4 MG/2 ML VIAL IVP ONE (18:30)
--- NOTE | 2023-05-31 18:40 | NUR ---
1000ML NS BOLUS COMPLETED, TRANEXAMIC IVPB GIVEN AT 360CC/HOUR.
--- NOTE | 2023-05-31 18:45 | NUR ---
DR. BENDER SURGEON AT BEDSIDE TO DISCUSS POC.
[2023-05-31 18:53] LABS: BILIRUBIN,URINE NEGATIVE (NEGATIVE); BLOOD, URINE NEGATIVE (NEGATIVE); CLARITY/URINE CLEAR (CLEAR); COLOR,URINE YELLOW (YELLOW); GLUCOSE,URINE NEGATIVE (NEGATIVE); KETONES,URINE NEGATIVE (NEGATIVE); LEUKOCYTE ESTERASE ,URINE NEGATIVE (NEGATIVE); NITRITE, URINE NEGATIVE (NEGATIVE); PH,URINE 6.5 (5.0-8.0); PROTEIN URINE NEGATIVE (NEGATIVE); UROBILINOGEN,URINE 0.2 (0.2-1.0)
--- NOTE | 2023-05-31 19:30 | NUR ---
PT ENDORSED TO JUJU HIGGINBOTHAM. ALL QUESTIONS AND CONCERNS ADDRESSED.
--- NOTE | 2023-05-31 20:22 | NUR ---
Atemtted to place Escobedo catheter with pt in a sitting position due to hemoptysis. Was unable to see urethra. Made OR aware of situation.
--- NOTE | 2023-05-31 20:54 | NUR ---
Admit bed requested Patient will be admitted to care of Dr. Hitchcock. Admitted to ICU unit. Diagnosis GI Bleed, Hemoptysis Inpatient (Yes or No) y Observation (Yes or No) n Orientation concerns or request close to nursing station (Yes or No) n Covid Status On vent or bipap n Isolation requirements n Needs a sitter n From Home (Yes or if No enter name of facility) y Requires Dialysis (Yes or No) n Med Rec Completed (Yes of No) y
--- NOTE | 2023-05-31 20:55 | NUR ---
Pt started forcefully vomiting blood. approx 500 cc were suctioned from pt. spo2 dropped to 40%. O2 was increased to 5L on NC. pt was observed shaking, it is unknown if pt was seizing. 2mg of Ativan was given. NG canula was inserted with suctioning, oxygenation started to improve back to 95%. Pt stablized and sent to OR.
--- NOTE | 2023-05-31 20:58 | NUR ---
Dr. Yaya FOSTER Ativan 2 mg IVP STAT.
[2023-05-31 21:00] VITALS: BP_SYST 138; PULSE 74; RESP 18; TEMP 98.6; O2SAT 99
--- NOTE | 2023-05-31 21:03 | NUR ---
Ativan 2 mg IVP given.
[2023-05-31] MEDS ORDERED: LORazepam 2 MG/ML VIAL ONE (21:04)
[2023-05-31] MEDS ORDERED: ROCURONIUM BROMIDE 10 MG/ML (ZEMURON) ONE (21:32)
[2023-05-31] MEDS ORDERED: LR 1,000 ML IV.SOLN IV ONE (21:32)
[2023-05-31] MEDS ORDERED: MIDAZOLAM HCL 2 MG/2 ML VIAL (VERSED) ONE (21:32)
[2023-05-31] MEDS ORDERED: ePHEDrine sulfate 50 MG/ML VIAL ONE (21:32)
[2023-05-31] MEDS ORDERED: fentaNYL CITRATE/PF 100 MCG/2 ML AMP ONE (21:32)
[2023-05-31 22:00] VITALS: BP_SYST 122; PULSE 77; RESP 18; O2SAT 99
--- NOTE | 2023-05-31 22:05 | NUR ---
RT NOTES ADMITTED PT FROM OR. PT IS INTUBATED WITH 7.5 ETT SECURED AT 25 CM AT LIP LINE. PLACED ON VENT AC 14 VT 400 PEEP [address] HUMMEL. GOOD EQUAL BILAT CHEST RISE OBSERVED. EQUAL BILAT BREATH SOUNDS AUSCULTATED. ABG TO BE DONE. CXRAY TO BE ORDERED. PT TOLERATING VENT AT THIS TIME. Addendum: 05/31/23 at 2335 by Son Butts RT Amended: Links added.
--- NOTE | 2023-05-31 22:25 | NUR ---
CONSULT PAGE TO DR. HUMMEL. ORDERS TO START FENTANYL DRIP AND VERSED DRIP PER PROTOCOL. WILL CARRY OUT ORDERS.
[2023-05-31] MEDS: MIDAZOLAM IN NACL,ISO-OSMOT/PF 100 ML IV PRN (22:49)
[2023-05-31] MEDS: FENTANYL CITRATE-0.9 % NACL/PF 100 ML IV PRN (22:49)
--- NOTE | 2023-05-31 22:50 | NUR ---
Patient will be admitted to care of [facility]. Admitted to ICU unit. Belongings list completed. Complete and up to date summary report printed. SBAR report to be given at bedside with opportunity for questions.
[2023-05-31 23:00] VITALS: BP_SYST 118; PULSE 72; RESP 18; O2SAT 99
[2023-05-31] MEDS: IPRATROPIUM/ALBUTEROL SULFATE 3 ML AMPUL.NEB (DUONEB) INH SCH (23:00)
[2023-05-31] MEDS: NACL 0.9% 1,000 ML IV SCH (23:00)
[2023-05-31] MEDS ORDERED: D5/0.45 NS 1,000 ML IV ONE (23:00)
[2023-05-31 23:26] VITALS: BP_SYST 149; PULSE 70; O2SAT 100
[2023-05-31 23:30] VITALS: BP_SYST 149; PULSE 70
--- NOTE | 2023-05-31 23:37 | NUR ---
SPOKE TO OR NURSE, NURSE STATED DR. VILLEGAS READ XRAY REPORT FOR POST INTUBATION AND OKAYED PLACEMENT OF ETT.
[2023-06-01] VITALS (38 sets, daily range): BP systolic 74–159; PULSE 68–95; RESP 18–23; TEMP 97.6–98.9; O2SAT 94–100
[2023-06-01] MEDS ORDERED: HYDROmorphone 1 MG/ML INJ. CARTRIDGE IVP PRN ×2
[2023-06-01] MEDS ORDERED: ONDANSETRON HCL 4 MG/2 ML VIAL IVP PRN
[2023-06-01] MEDS ORDERED: PIPERACILLIN/TAZOBACTAM 3.375 GM/VIAL (ZOSYN) IV ONE
[2023-06-01] MEDS ORDERED: KETOROLAC TROMETHAMINE 30 MG VIAL IVP PRN
[2023-06-01] MEDS ORDERED: NALOXONE HCL 0.4 MG/ML AMP (NARCAN) IVP PRN ×2
[2023-06-01] MEDS ORDERED: MIDAZOLAM HCL 5 MG/5 ML VIAL IVP PRN
[2023-06-01] MEDS ORDERED: METOCLOPRAMIDE HCL 10 MG/2 ML VIAL IVP PRN
[2023-06-01] MEDS ORDERED: ALBUMIN HUMAN 25% 100 ML IV ONE (02:30)
[2023-06-01] MEDS ORDERED: ALBUMIN HUMAN 25% 200 ML IV ONE ×2 (02:38→02:45)
[2023-06-01] MEDS: IPRATROPIUM/ALBUTEROL SULFATE 3 ML AMPUL.NEB (DUONEB) INH SCH ×6 (03:05→23:20)
[2023-06-01] MEDS: PIPERACILLIN/TAZO 3.375/DEX-IS 50 ML IV SCH ×4 (05:22→20:40)
--- NOTE | 2023-06-01 05:45 | NUR ---
RESUMED CARE FOR PATIENT AT THIS TIME, REPORT GIVEN BY JUJU GIL.
[2023-06-01 06:05] LABS: EOSINOPHILS % (AUTO) 0.1 % (0.0-4.0); LYMPHOCYTES # (AUTO) 0.2 K/uL (1.0-5.5); MEAN CORPUSCULAR HEMOGLOBIN 30 pg (27-31); MONOCYTES # (AUTO) 0.6 K/uL (0.0-1.0)
[2023-06-01 06:11] LABS: BASOPHILS % (AUTO) 0.2 % (0.0-2.0); LYMPHOCYTES % (AUTO) 3.8 % (20.5-51.5); MEAN CORPUSCULAR HGB CONC 34 % (32-36); MEAN CORPUSCULAR VOLUME 89 fL (79.0-98.0); MONOCYTES % (AUTO) 11.6 % (1.7-9.3); NEUTROPHILS # (AUTO) 4.2 K/uL (1.8-7.7); NEUTROPHILS % (AUTO) 84.3 % (40.0-70.0); PLATELET COUNT (AUTO) 79 K/uL (130-430); RED CELL DISTRIBUTION WIDTH 14.3 % (9.0-15.0)
[2023-06-01 06:12] LABS: RED BLOOD CELL COUNT(AUTO) 1.95 MIL/uL (4.2-6.2)
[2023-06-01 06:14] LABS: HEMATOCRIT 17.4 % (36-48); HEMOGLOBIN 5.9 g/dL (12.0-16.0)
[2023-06-01 06:26] LABS: ALANINE AMINOTRANSFERASE 18 U/L (12-78); ALBUMIN 3.3 g/dL (3.4-4.8); ANION GAP 8 (5-15); ASPARTATE AMINOTRANSFERASE 16 U/L (10-37); CHLORIDE 90 mmol/L (98-107); CREATININE 1.08 mg/dL (0.55-1.30); GLUCOSE 104 mg/dL (74-106); TOTAL BILIRUBIN 1.3 mg/dL (0.0-1.0); UREA NITROGEN, BLOOD 28 mg/dL (8-21)
--- NOTE | 2023-06-01 06:40 | NUR ---
CALL TO DR. HELLER FOR CRITICAL LAB. ORDERS TO TRANSFUSE 2 UPRBCS. WILL CARRY OUT ORDER.
--- NOTE | 2023-06-01 07:22 | NUR ---
Report received from Lily MATUTE, all cares assumed. Pt responds to verbal/tactile stimuli, RASS -2. Trach to vent AC 18, 400, 40%, 5. Sedated with Versed 5mg/hr infusing to LFA 20g PIV, NS at 100mL/hr infusing to RFA 20g PIV. G-tube clamped. Skin intact. SR on monitor, VSS. HOB elevated 30 degrees. Bed in low and locked position.
[2023-06-01] MEDS: PANTOPRAZOLE SODIUM 40 MG/VIAL (PROTONIX) IVP SCH (10:15)
[2023-06-01] MEDS: NACL 0.9% 1,000 ML IV SCH ×2 (10:15→20:41)
--- NOTE | 2023-06-01 12:56 | NUR ---
Dr. Wilber al at bedside, update given. Plan of care discussed with daughter and son of pt. Verbal order received for dietary consult and start tube feeding Vital AF 1.2 at 10mL/hr.
[2023-06-01] MEDS ORDERED: POTASSIUM CHLORIDE 40 MEQ, LIDOCAINE JECT 2% PF 100 MG 75 MG in NS 250 ML IV ONE (13:00)
[2023-06-01] MEDS ORDERED: iohexoL 300 mgI/mL, 150 ML INFUS..BTL IV ONE (14:42)
--- NOTE | 2023-06-01 16:02 | NUR ---
Called Dr. Castillo with a consult,spoke with Sridevi from doctors office
--- NOTE | 2023-06-01 17:01 | NUR ---
RT NOTES 1450 ASSISTED IN BAGGING PT TO CT SCAN. BAGGED PT BACK AT 1523 PLACED PT BACK ON VENT AND HHN TX GIVEN. PT TOLERATED WELL. Addendum: 06/01/23 at 1703 by Ira Wells RT Amended: Links added.
--- NOTE | 2023-06-01 19:31 | NUR ---
Dietitian Recommendations * Vital AF 1.2 at 55 ml/hr (goal rate), Free Water Flush: 100 ml Q6h via GT Provides: 1584 kcal/day, 99 gm protein/day, and 1471 ml free water/day Meets: 98% of lower end of estimated caloric needs, 122% of upper end of estimated caloric needs, and 105% of lower end of estimated fluid needs Please refer to Nutrition Assessment for details. MS LEOS RD Addendum: 06/01/23 at [address] Amended: Links added. Addendum: 06/01/23 at [address] CORRECTION: * Vital AF 1.2 at 55 ml/hr (goal rate), Damien BID, Free Water Flush: 100 ml Q6h via GT Provides: 1744 kcal/day, 104 gm protein/day, and 1471 ml free water/day Meets: 92% of upper end of estimated caloric needs, 128% of upper end of estimated caloric needs, and 105% of lower end of estimated fluid needs Please refer to Nutrition Assessment for details. LP, MS, RD
--- NOTE | 2023-06-01 19:45 | NUR ---
RT NOTES PULLED ETT OUT 3CM TO 22CM AT LIP LINE PER DR HUMMEL. JUJU DE PAZ AT BEDSIDE ASSISTING. PT HAS 7.5 ETT SECURED AT 22CM LIP LINE Addendum: 06/01/23 at 2123 by Son Butts RT Amended: Links added.
[2023-06-01] MEDS: MIDAZOLAM IN NACL,ISO-OSMOT/PF 100 ML IV PRN (20:56)
[2023-06-01] MEDS: FENTANYL CITRATE-0.9 % NACL/PF 100 ML IV PRN (23:36)
[2023-06-01 23:37] LABS: INR 1.2 (0.8-1.2); PROTHROMBIN TIME 12.4 SECS (9.5-12.5)
[2023-06-02] VITALS (40 sets, daily range): BP systolic 94–172; PULSE 77–94; RESP 18–28; TEMP 98.4–99.6; O2SAT 97–100
[2023-06-02] MEDS: PIPERACILLIN/TAZO 3.375/DEX-IS 50 ML IV SCH ×4 (00:18→17:46)
[2023-06-02] MEDS: IPRATROPIUM/ALBUTEROL SULFATE 3 ML AMPUL.NEB (DUONEB) INH SCH ×6 (02:40→23:21)
[2023-06-02 04:49] LABS: BASOPHILS % (AUTO) 0.3 % (0.0-2.0); EOSINOPHILS % (AUTO) 0.3 % (0.0-4.0); HEMATOCRIT 23.2 % (36-48); HEMOGLOBIN 7.8 g/dL (12.0-16.0); LYMPHOCYTES # (AUTO) 0.5 K/uL (1.0-5.5); LYMPHOCYTES % (AUTO) 6.4 % (20.5-51.5); MEAN CORPUSCULAR HEMOGLOBIN 29 pg (27-31); MEAN CORPUSCULAR HGB CONC 34 % (32-36); MEAN CORPUSCULAR VOLUME 86 fL (79.0-98.0); MONOCYTES # (AUTO) 0.5 K/uL (0.0-1.0); NEUTROPHILS # (AUTO) 6.1 K/uL (1.8-7.7); PLATELET COUNT (AUTO) 70 K/uL (130-430); RED BLOOD CELL COUNT(AUTO) 2.69 MIL/uL (4.2-6.2); RED CELL DISTRIBUTION WIDTH 16.1 % (9.0-15.0); WHITE BLOOD COUNT (AUTO) 7.1 K/uL (4.8-10.8)
[2023-06-02] MEDS: NACL 0.9% 1,000 ML IV SCH ×2 (05:00→15:32)
[2023-06-02 05:15] LABS: ANION GAP 7 (5-15); CALCIUM 8.5 mg/dL (8.4-11.0); CHLORIDE 95 mmol/L (98-107); CREATININE 1.18 mg/dL (0.55-1.30); GLUCOSE 89 mg/dL (74-106); UREA NITROGEN, BLOOD 36 mg/dL (8-21)
[2023-06-02] MEDS: PANTOPRAZOLE SODIUM 40 MG/VIAL (PROTONIX) IVP SCH (08:22)
--- NOTE | 2023-06-02 10:28 | NUR ---
RT NOTES Assisted Dr Merino with bedside bronchoscopy, collected sputum, although bloody, said no active bleed was seen. Dr instructed to pull ETT 1 cm up during procedure, which pt. tolerated well. ETT secured @ 21cm. was made aware of Dr Hitchcock wants to start CPAP trials. Dr Merino said she doesn't mind starting the SBT, once pt is off all sedation. Sal House made aware.
--- NOTE | 2023-06-02 11:20 | NUR ---
1023AM at bedside, perform Bronchoscopy.fentanyl given at 30, versed set at 6 1023AM Time out Pt tolerated well during the procedure. Addendum: 06/02/23 at 1633 by Lorenzo Matute RN 1500 PRBC verified with JUJU Elmore at bedside. pre-infusion VS 1501 start infusion blood 1516 VS stable Addendum: 06/02/23 at 1918 by Lorenzo Matute RN 1730 blood transfusion done. VS check done, no acute distress noted.
--- NOTE | 2023-06-02 13:27 | NUR ---
RT NOTES Coordinated with JUJU House, vent to CPAP 5 PS 10 per order. No immediate adverse reactions noted. Will monitor pt. family at bedside, appears to understand information provided regarding cpap trial.
--- NOTE | 2023-06-02 15:22 | NUR ---
RT NOTES end cpap pt. tolerated about 2 hours of cpap. no distress noted. no apneic episode noted. Vent back to Ac. Daughter Avani remains at bedside.
[2023-06-03] VITALS (36 sets, daily range): BP systolic 91–172; PULSE 63–89; RESP 18–24; TEMP 98.3–99.2; O2SAT 96–100
[2023-06-03] MEDS: NACL 0.9% 1,000 ML IV SCH ×2 (01:00→10:00)
[2023-06-03] MEDS: IPRATROPIUM/ALBUTEROL SULFATE 3 ML AMPUL.NEB (DUONEB) INH SCH ×5 (03:18→23:17)
[2023-06-03 05:17] LABS: BASOPHILS % (AUTO) 0.5 % (0.0-2.0); EOSINOPHILS # (AUTO) 0.1 K/uL (0.0-0.4); EOSINOPHILS % (AUTO) 0.9 % (0.0-4.0); HEMATOCRIT 24.6 % (36-48); HEMOGLOBIN 8.1 g/dL (12.0-16.0); LYMPHOCYTES # (AUTO) 0.6 K/uL (1.0-5.5); LYMPHOCYTES % (AUTO) 8.8 % (20.5-51.5); MEAN CORPUSCULAR HEMOGLOBIN 29 pg (27-31); MEAN CORPUSCULAR HGB CONC 33 % (32-36); MEAN CORPUSCULAR VOLUME 88 fL (79.0-98.0); MONOCYTES # (AUTO) 0.4 K/uL (0.0-1.0); MONOCYTES % (AUTO) 6.2 % (1.7-9.3); NEUTROPHILS # (AUTO) 5.9 K/uL (1.8-7.7); NEUTROPHILS % (AUTO) 83.6 % (40.0-70.0); PLATELET COUNT (AUTO) 74 K/uL (130-430); RED CELL DISTRIBUTION WIDTH 15.8 % (9.0-15.0); WHITE BLOOD COUNT (AUTO) 7.1 K/uL (4.8-10.8)
[2023-06-03 05:41] LABS: ANION GAP 4 (5-15); CALCIUM 8.7 mg/dL (8.4-11.0); CHLORIDE 99 mmol/L (98-107); CREATININE 1.02 mg/dL (0.55-1.30); GLUCOSE 97 mg/dL (74-106); UREA NITROGEN, BLOOD 30 mg/dL (8-21)
[2023-06-03] MEDS: PIPERACILLIN/TAZO 3.375/DEX-IS 50 ML IV SCH ×3 (06:11→11:37)
--- NOTE | 2023-06-03 07:25 | NUR ---
Report received from Song MATUTE, all cares assumed. Pt responds to tactile stimuli, RASS -2. Trach to vent AC 16, 400, 30%, 5. Sedated with Fentanyl 50mcg/kg; NS 100mL/hr infusing to L IJ Central line. Vital AF infusing to L NGT at 55mL/hr. Purewick to suction with dark yellow urine. R eye hematoma, skin intact. SR on monitor, VSS. HOB elevated 30 degrees. Bed in low and locked position.
--- NOTE | 2023-06-03 09:32 | NUR ---
Called Dr. Castillo [phone] with a consult, unable to reach Caser FADI PENNINGTON on main line.
[2023-06-03] MEDS: PANTOPRAZOLE SODIUM 40 MG/VIAL (PROTONIX) IVP SCH (09:59)
--- NOTE | 2023-06-03 11:50 | NUR ---
PLACED ON CPAP 5/ PS 10 @ 1150. PLACED BACK TO AC @ 1330
[2023-06-04] VITALS (35 sets, daily range): BP systolic 103–163; PULSE 64–100; RESP 18–24; TEMP 97.7–100.4; O2SAT 97–99
[2023-06-04] MEDS: PIPERACILLIN/TAZO 3.375/DEX-IS 50 ML IV SCH ×4 (01:12→14:22)
[2023-06-04] MEDS: NACL 0.9% 1,000 ML IV SCH ×4 (01:15→23:06)
[2023-06-04] MEDS: IPRATROPIUM/ALBUTEROL SULFATE 3 ML AMPUL.NEB (DUONEB) INH SCH ×6 (03:23→23:31)
[2023-06-04] MEDS: FENTANYL CITRATE-0.9 % NACL/PF 100 ML IV PRN ×2 (03:29→12:51)
[2023-06-04 05:41] LABS: BASOPHILS % (AUTO) 0.5 % (0.0-2.0); EOSINOPHILS # (AUTO) 0.1 K/uL (0.0-0.4); EOSINOPHILS % (AUTO) 2.2 % (0.0-4.0); HEMATOCRIT 24.6 % (36-48); HEMOGLOBIN 8.2 g/dL (12.0-16.0); LYMPHOCYTES # (AUTO) 0.4 K/uL (1.0-5.5); MEAN CORPUSCULAR HEMOGLOBIN 29 pg (27-31); MEAN CORPUSCULAR HGB CONC 33 % (32-36); MEAN CORPUSCULAR VOLUME 88 fL (79.0-98.0); MONOCYTES # (AUTO) 0.4 K/uL (0.0-1.0); NEUTROPHILS # (AUTO) 5.4 K/uL (1.8-7.7); NEUTROPHILS % (AUTO) 84.3 % (40.0-70.0); PLATELET COUNT (AUTO) 86 K/uL (130-430); RED BLOOD CELL COUNT(AUTO) 2.81 MIL/uL (4.2-6.2); RED CELL DISTRIBUTION WIDTH 16.1 % (9.0-15.0); WHITE BLOOD COUNT (AUTO) 6.4 K/uL (4.8-10.8)
[2023-06-04 06:07] LABS: ANION GAP 6 (5-15); CALCIUM 8.7 mg/dL (8.4-11.0); CHLORIDE 102 mmol/L (98-107); CREATININE 0.93 mg/dL (0.55-1.30); GLUCOSE 90 mg/dL (74-106); UREA NITROGEN, BLOOD 23 mg/dL (8-21)
--- NOTE | 2023-06-04 08:00 | NUR ---
REG RN VLAD AYALA IN CHARGE OF PT, PT VS STABLE ON 2 SEDATIVE MEDS, VERSED 6MG/H AND FENANYL 75 MICS/H, PT AROUSABLE TO VOICE, PT BP SLIGHTLY ELEVATED EVEN ON SEDATION, WILL DISCUSS BP WITH PMD AND POSS BP MEDICATION ADDED TO REGIMEN-HOLDING VENT WEANING TIL BP CONTROLLED/PT OTHERWISE TOLERATING TF, IN ZERO APPARENT DISTRESS, FOLLOWING COMMANDS//AFEBRILE//MW
[2023-06-04] MEDS: MIDAZOLAM IN NACL,ISO-OSMOT/PF 100 ML IV PRN (09:42)
[2023-06-04] MEDS: PANTOPRAZOLE SODIUM 40 MG/VIAL (PROTONIX) IVP SCH (09:47)
--- NOTE | 2023-06-04 10:40 | NUR ---
PT TOLERATING TF WELL/IN ZERO APPARENT DISTRESS/SECRETIONS SCANT BLOODY, PT STILL REASPONSIVE TO COMMANDS//MW
[2023-06-04] MEDS ORDERED: LORazepam 2 MG/ML VIAL IVP ONE (11:15)
--- NOTE | 2023-06-04 11:35 | NUR ---
PLACED ON CPAP 5/ PS 10 & FIO2 30%. 1220 PLACED BACK ON AC.
--- NOTE | 2023-06-04 11:44 | NUR ---
Nutrition F/U RD reviewed pts current EMR including diet hx, physician notes, nursing notes, pertinent labs/meds/procedures, care trends and care activity. Admitting Diagnosis GI bleed Subjective Information 05/31: Pt intubated to protect airways RD rounded to ICU and s/w primary RN, Cr. He reports pt is doing well; tolerating TF well at goal rate, 55 mL/hr; still on the vent; no BM yet- but will possibly be starting stool softeners to aid in BM. RD witnessed pt on the vent w/ VEtot of 7.54. Per EMR review: Low GRV (under 50mL since 06/01); abd soft w/ active bowel sounds; temp 98.3 WNL; BP trending low (112/56 L). Current Diet Order/Nutrition Support Vital AF 1.2 @ 55 mL/hr (goal), FWF 100 mL q6h, Damien BID via GT x 3 days % PO intake N/A Last BM None documented NEW Estimated Energy Expenditure (kcals/day) 1125 ([facility] 2002: vent/critically ill. MSJ 933, Tmax 37.17, Vetot 7.54) Estimated Protein Required (g/day) 65-81 (1.2-1.5 gm/kg CBW d/t CA, unintentional wt loss) Estimated Fluid Required (l/day) 1.4-1.6 (25-30 ml/kg CBW for GERIAT maintenance) Problem/Etiology/Signs/Symptoms Increased nutritional needs R/T catabolic illness AEB estimated nutritional requirements for CA. *ongoing Risk for malnutrition R/T unintentional wt loss AEB 55# wt loss within 1 yr/33% wt change. *ongoing Expected Outcomes/Goals - Monitor tolerance to EN support w/ goal of pt meeting >80% of estimated nutritional needs, labs trending WNL, normal GI function, and skin integrity/wt maintenance Dietitian Recommendations *New goal rate: Vital AF 1.2 at 40 ml/hr (goal rate), Damien BID, Free Water Flush: 100 ml Q6h via GT Provides(w/ Damien): 1332 kcal/day, 77 gm protein/day, and 1179 ml free water/day Meets: 118% estimated caloric needs, 95% of upper end of estimated caloric needs, and 84% of lower end of estimated fluid needs Follow up * High risk: f/u in 2-3 days GS, MPH, RD
--- NOTE | 2023-06-04 11:45 | NUR ---
Dietitian Recommendations *New goal rate: Vital AF 1.2 at 40 ml/hr (goal rate), Damien BID, Free Water Flush: 100 ml Q6h via GT Provides(w/ Damien): 1332 kcal/day, 77 gm protein/day, and 1179 ml free water/day Meets: 118% estimated caloric needs, 95% of upper end of estimated caloric needs, and 84% of lower end of estimated fluid needs GS, MPH, RD Please refer to Nutrition F/U for further details. Thanks!
--- NOTE | 2023-06-04 19:10 | NUR ---
RECEIVED REPORT ON PATIENT FROM JUJU CHU, ASSUMED CARE AND STARTED ASSESSMENT.
--- NOTE | 2023-06-04 23:47 | NUR ---
AT THE BEGINNING OF THE SHIFT THE PATIENT WAS RUNNING A LOW GRADE FEVER AT 100.4. NO ACTION WAS TAKENAT 2200 A RANDOM TEMPERATURE CHECK WAS PERFORMED AND THE TEMP WAS 100.6. AT THIS POINT THE BLANKET THAT THE PATIENT WAS COVERED UP WITH WAS REMOVED. ROLLED DOWN AND PLACD AT HER FEET. THE TEMP WAS AGAIN CHECKED AT MIDNIGHT. AT WHICH TIMWE THE TEMP HAD FALLEN TO 99.9. WILL CONTINUE TO MONITOR AND ASSESS FOR SAFETY AND COMFORT.
[2023-06-05] VITALS (36 sets, daily range): BP systolic 109–173; PULSE 70–94; RESP 16–24; TEMP 96.9–99.9; O2SAT 97–100
[2023-06-05] MEDS: IPRATROPIUM/ALBUTEROL SULFATE 3 ML AMPUL.NEB (DUONEB) INH SCH ×6 (03:35→23:21)
--- NOTE | 2023-06-05 04:00 | NUR ---
RESTRAINTS DISCONTINUED PER CONTRACT WITH THE PATIENT. WILL CONTINUE TO MONITOR AND ASSESS FOR SAFETY AND COMFORT.
[2023-06-05 04:28] LABS: BASOPHILS % (AUTO) 0.6 % (0.0-2.0); EOSINOPHILS # (AUTO) 0.2 K/uL (0.0-0.4); EOSINOPHILS % (AUTO) 2.8 % (0.0-4.0); HEMATOCRIT 24.5 % (36-48); HEMOGLOBIN 8.2 g/dL (12.0-16.0); LYMPHOCYTES # (AUTO) 0.5 K/uL (1.0-5.5); LYMPHOCYTES % (AUTO) 6.9 % (20.5-51.5); MEAN CORPUSCULAR HEMOGLOBIN 30 pg (27-31); MEAN CORPUSCULAR HGB CONC 33 % (32-36); MEAN CORPUSCULAR VOLUME 88 fL (79.0-98.0); MONOCYTES # (AUTO) 0.6 K/uL (0.0-1.0); MONOCYTES % (AUTO) 8.3 % (1.7-9.3); NEUTROPHILS # (AUTO) 5.5 K/uL (1.8-7.7); NEUTROPHILS % (AUTO) 81.4 % (40.0-70.0); PLATELET COUNT (AUTO) 93 K/uL (130-430); RED BLOOD CELL COUNT(AUTO) 2.77 MIL/uL (4.2-6.2); RED CELL DISTRIBUTION WIDTH 15.7 % (9.0-15.0); WHITE BLOOD COUNT (AUTO) 6.7 K/uL (4.8-10.8)
[2023-06-05] MEDS: FENTANYL CITRATE-0.9 % NACL/PF 100 ML IV PRN (04:45)
[2023-06-05 04:51] LABS: ALANINE AMINOTRANSFERASE 18 U/L (12-78); ALBUMIN 2.2 g/dL (3.4-4.8); ANION GAP 6 (5-15); ASPARTATE AMINOTRANSFERASE 22 U/L (10-37); CALCIUM 8.8 mg/dL (8.4-11.0); CHLORIDE 103 mmol/L (98-107); CREATININE 0.85 mg/dL (0.55-1.30); GLUCOSE 98 mg/dL (74-106); TOTAL BILIRUBIN 0.8 mg/dL (0.0-1.0); UREA NITROGEN, BLOOD 22 mg/dL (8-21)
[2023-06-05] MEDS: PIPERACILLIN/TAZO 3.375/DEX-IS 50 ML IV SCH ×4 (06:00→12:36)
--- NOTE | 2023-06-05 07:25 | NUR ---
report given to mina parada, and care was turned over to him.
--- NOTE | 2023-06-05 08:00 | NUR ---
VLAD SIERRA RN IS IN CHARGE OF THIS PATIENT/PT IS ALERT BUT SEDATED, AFEBRILE AND TOLERATING TF/STOPPED SEDATION FOR WEANING/VS STABLE PT PUREWICK WORKING WELL/SON AT BEDSIDE, PT IN ZERO DISTRESS//MW
[2023-06-05] MEDS: PANTOPRAZOLE SODIUM 40 MG/VIAL (PROTONIX) IVP SCH (08:55)
--- NOTE | 2023-06-05 11:43 | NUR ---
PT FOLLOWING COMMANDS WELL, VENT TO CPAP/PT STILL OFF ALL SEDATION AND RESTRAINTS//MW 1235 PT TOLERATING CPAP WELL/NO SS OF BLEEDING/STILL IN ZEERO DISTRESS//MW
[2023-06-05] MEDS: NACL 0.9% 1,000 ML IV SCH ×2 (12:37→20:39)
--- NOTE | 2023-06-05 13:00 | NUR ---
Wound Evaluation: Wound Consult ordered for Low Charly Score. Patient evaluated for a low Charly score of 12. Patient was awake, alert, oriented and received in a Vinh Bed. Patient needs to be turned in bed. Skin is intact. Recommend: Reposition patient side to side only every 2 hours with pillow support. Elevate, off-load and float bilateral heels with one pillow lengthwise under each extremity at all times. Offload pressure areas with pillows for pressure re-distribution. Perform skin care and monitor skin integrity Q shift. Use Hydraguard moisture barrier cream on moisture susceptible areas QID and PRN for soiling. Place patient on a P500 low air-loss mattress.
--- NOTE | 2023-06-05 13:37 | NUR ---
PAGED Dr. Castillo [phone].
--- NOTE | 2023-06-05 14:22 | NUR ---
HAVE SPOKEN TO DR ANDERSON WHO STATES THAT HE HAS TRIED TO REACH DR HELLER BECAUSE HE CANNOT "SCOPE" THATS THE ONLY CONSULT HE KNOWS ABOUT AND THAT WAS THROUGH OUR RN SHAZIA WHO CALLED HIM, HE HAS NOT SPOKEN TO DR HELLER TO SEE EXACTLY WHAT THE CONSULT WAS ABOUT, PT IS TOLERATING CPAP EVERYDAY WELL, NO BLEEDING ISSUES,XRAY DOESNT SHOW A MASS BUT NO "LEAK TEST" HAS BEEN ORDERED TO CHECK FOR SWELLING-AGAIN PAGED PINA AND ENT DOCTOR SAYS HE IS CONTINUOUSLY CALLING DR HELLER ON HIS CELL NUMBER/PT BACK TO AC MODE ON VENT-TOLERATED CPAP VERY WELL BUT NO EXTUBASTION ORDERS IN PLACE/PT COMFORTABLE AND DOES NOT WANT SEDATION//MW
[2023-06-05] MEDS: CEFTRIAXONE SOD 1 GM/ D5W 50 ML IV SCH ×2 (15:42)
[2023-06-06] VITALS (52 sets, daily range): BP systolic 60–161; PULSE 73–110; RESP 12–32; TEMP 97.7–99; O2SAT 92–100
[2023-06-06] MEDS: MIDAZOLAM IN NACL,ISO-OSMOT/PF 100 ML IV PRN ×2 (00:36→20:09)
[2023-06-06] MEDS: IPRATROPIUM/ALBUTEROL SULFATE 3 ML AMPUL.NEB (DUONEB) INH SCH ×6 (02:03→23:22)
[2023-06-06 04:57] LABS: BASOPHILS % (AUTO) 0.6 % (0.0-2.0); EOSINOPHILS # (AUTO) 0.1 K/uL (0.0-0.4); EOSINOPHILS % (AUTO) 2.2 % (0.0-4.0); HEMATOCRIT 23.2 % (36-48); HEMOGLOBIN 7.7 g/dL (12.0-16.0); LYMPHOCYTES # (AUTO) 0.6 K/uL (1.0-5.5); LYMPHOCYTES % (AUTO) 10.2 % (20.5-51.5); MEAN CORPUSCULAR HEMOGLOBIN 30 pg (27-31); MEAN CORPUSCULAR HGB CONC 33 % (32-36); MEAN CORPUSCULAR VOLUME 89 fL (79.0-98.0); MONOCYTES # (AUTO) 0.6 K/uL (0.0-1.0); NEUTROPHILS # (AUTO) 4.9 K/uL (1.8-7.7); PLATELET COUNT (AUTO) 101 K/uL (130-430); RED BLOOD CELL COUNT(AUTO) 2.62 MIL/uL (4.2-6.2); RED CELL DISTRIBUTION WIDTH 15.9 % (9.0-15.0); WHITE BLOOD COUNT (AUTO) 6.3 K/uL (4.8-10.8)
[2023-06-06] MEDS: FENTANYL CITRATE-0.9 % NACL/PF 100 ML IV PRN (05:21)
--- NOTE | 2023-06-06 07:57 | NUR ---
RT NOTES 0729 PER RN, SHE WILL TITRATE MEDS DOWN BEFORE CPAP TRIAL. Addendum: 06/06/23 at 0801 by Ira Wells RT Amended: Links added.
[2023-06-06] MEDS: NACL 0.9% 1,000 ML IV SCH (08:14)
[2023-06-06] MEDS: PANTOPRAZOLE SODIUM 40 MG/VIAL (PROTONIX) IVP SCH (08:14)
--- NOTE | 2023-06-06 12:07 | NUR ---
SPOKE WITH [facility] REQUESTING ORDERS FROM DR. HELLER. RN MADE AWARE.
[2023-06-06] MEDS ORDERED: NOREPINEPHRINE 4 MG/4 ML VIAL IV ONE (12:10)
--- NOTE | 2023-06-06 12:52 | NUR ---
RT NOTES [phone] WALKED INTO ICU, RN CALLING FROM ROOM 7. FOUND PT TO BE BLEEDING PERFUSELY FROM MOUTH, NOSE AND IN ET TUBE. PLACED PT ON 50% FIO2 SAT WAS 91% SUCTIONED BLOODY SECRETIONS. ER CAME AND PLACED GUAZE PACKING IN MOUTH TO HELP STOP BLEEDING. SAT IS 98%, HHN TX GIVEN, WILL MONITOR. Addendum: 06/06/23 at 1256 by Ira Wells RT Amended: Links added.
[2023-06-06 13:38] LABS: INR 1.1 (0.8-1.2); PROTHROMBIN TIME 10.9 SECS (9.5-12.5)
--- NOTE | 2023-06-06 14:02 | NUR ---
rt notes 1355 assisted in holding guaze on nose and mouth due to pt bleeding again. guaze placed around mouth. will monitor. Addendum: 06/06/23 at 1404 by Ira Wells RT Amended: Links added.
--- NOTE | 2023-06-06 15:20 | NUR ---
Called Dr Hitchcock and spoke to Mary in regards to patient orders. RN notified.
--- NOTE | 2023-06-06 15:44 | NUR ---
SPOKE WITH THA REQUESTING ORDERS FROM [facility]. RN NOTIFIED.
[2023-06-06] MEDS: CEFTRIAXONE SOD 1 GM/ D5W 50 ML IV SCH ×2 (16:27)
--- NOTE | 2023-06-06 16:37 | NUR ---
Called Dr Hitchcock in regards to patient orders spoke to unknown caller. RN notified.
--- NOTE | 2023-06-06 16:41 | NUR ---
AFTER REPEATED UNANSWERED CALLS FROM DR HELLER, CALLED DR FARFAN TO NOTIFY THAT PATIENT HAS HAD 3 EPISODES OF LARGE ORAL AND NASAL BLEED . DR FARFAN CALLED BACK AND WAS NOTIFIED OF THE BLEEDING AND THAT THE ER DOCTOR, DR DOVER, PACKED THE PATIENTS ORALLY WITH KERLEX WRAP AND EMERGENTLY ORDERED 2 UNITS OF PRBCs. NO NEW ORDERS PER DR FARFAN, JUST REQUESTED TO FOLLOW UP ON PATIENT TRANSFER. DR HELLER CALLED BACK SHORTLY AFTER DR FARFAN AND ORDERED 2 UNITS OF PRBCs AFTER BEING NOTIFIED THAT PATIENT HAS HAD 2 MORE EPISODES OF BLEEDING.
[2023-06-06 17:15] LABS: HEMATOCRIT 25.5 % (36-48); HEMOGLOBIN 8.3 g/dL (12.0-16.0)
--- NOTE | 2023-06-06 18:34 | NUR ---
SPOKE WITH TANI REQUESTING ORDERS FROM DR. HELLER.
--- NOTE | 2023-06-06 18:52 | NUR ---
SPOKE WITH DR HELLER AND NOTIFIED HIM TO CALL DR BRIZUELA.
--- NOTE | 2023-06-06 19:15 | NUR ---
Report received from JUJU Mera. Patient intubated with 7.5 ETT to Vent at 21 CM L/L. Vent Settings: AC 18 Vt 400 FiO2 30% PEEP 5. IVF NS infusing at 100 ml/hr; PRBC infusing at 150 ml/hr; Versed drip infusing at 1 mg/hr. RASS +1. Will continue with POC. Will continue to monitor VS, focus on BP, RASS and clinical status.
--- NOTE | 2023-06-06 19:30 | NUR ---
Patient bleeding profusely from mouth & bilateral nares with large blood clots. Patient suctioned oropharynx, nasal pharanx & Endotracheal. RT at bedside changing tube D/T blood draining in Tubing. Dr. Naldo Leblanc. Ol;d Kerlex removed from mouth and new Kerlex replaced.
--- NOTE | 2023-06-06 19:30 | NUR ---
Versed drip increase to 4 mg/hr. Fentanyl drip infusion re-started at 50 units/hr.
--- NOTE | 2023-06-06 19:45 | NUR ---
Versed drip empty bag changed.
--- NOTE | 2023-06-06 20:15 | NUR ---
BP 84/46 MAP 63 with repeat 85/52 MAP61. Levophed drip increase to 0.15 mcg/kg/min.
--- NOTE | 2023-06-06 20:30 | NUR ---
PRBC #3 Transfusion complete. No Blood Transfusion Reaction Noted. See Blood Transufuion Record.
--- NOTE | 2023-06-06 20:40 | NUR ---
Dr. Hitchcock return call. informed patient's profuse bleeding with blood clots from mouth, nares & ETT, suctioned, and new Kerlex replaced; also, MD informed of Low BP & MAP and Levophed drip increase to 1.5 mcg/km/min, H&H ordered 1 HR S/P Transfusion at 2130. MD order DDAVP 0.3 mcg/kg to transfuse over 15 minutes.
[2023-06-06] MEDS ORDERED: DESMOPRESSIN ACETATE IV ONE (21:00)
[2023-06-06] MEDS ORDERED: NS IV ONE (21:00)
[2023-06-06] MEDS ORDERED: DESMOPRESSIN ACETATE 4 MCG/ML AMP IV ONE (21:00)
--- NOTE | 2023-06-06 21:15 | NUR ---
BP 82/47 MAP 57. Levophed drip increase to 0.2 mcg/min.
--- NOTE | 2023-06-06 21:33 | NUR ---
Phlebotoist at bedside. Blood obtained and specimen sent to lab.
[2023-06-06 21:52] LABS: HEMATOCRIT 22.7 % (36-48); HEMOGLOBIN 7.4 g/dL (12.0-16.0)
--- NOTE | 2023-06-06 22:25 | NUR ---
PRBC #4 Blood Transfusion Begin. See Blood Transfusion Record.
--- NOTE | 2023-06-06 22:40 | NUR ---
Levophed drip exchanged D/T empty bag.
[2023-06-06] MEDS: NOREPINEPHRINE BITARTRATE 4 MG in D5W 246 ML IV PRN (22:43)
[2023-06-07] VITALS (67 sets, daily range): BP systolic 26–161; PULSE 67–94; RESP 18–35; TEMP 98.2–98.7; O2SAT 97–100
[2023-06-07] MEDS: NACL 0.9% 1,000 ML IV SCH ×3 (00:47→10:37)
--- NOTE | 2023-06-07 02:00 | NUR ---
PRBC #4 Transfusion complete. No Blood Transfusion Reaction. See Blood Transfusion Record.
[2023-06-07] MEDS: IPRATROPIUM/ALBUTEROL SULFATE 3 ML AMPUL.NEB (DUONEB) INH SCH ×5 (02:06→19:34)
--- NOTE | 2023-06-07 02:49 | NUR ---
Patient transferred Air Low Loss Mattress/bed.
--- NOTE | 2023-06-07 03:33 | NUR ---
BP 124/75 MAP95. Levophed drip decreased to 0.17 mcg/kg/min.
[2023-06-07] MEDS: NOREPINEPHRINE BITARTRATE 4 MG in D5W 246 ML IV PRN (04:00)
--- NOTE | 2023-06-07 04:03 | NUR ---
Levophed drip exchanged to new bag.
--- NOTE | 2023-06-07 04:50 | NUR ---
BP 134/71 MAP 93. Levophed drip decrease to 0.14 mcg/kg/min.
--- NOTE | 2023-06-07 05:09 | NUR ---
Nurse Infection Control at bedside. Blood obtained and specimens sent to lab.
[2023-06-07 05:45] LABS: BASOPHILS # (AUTO) 0.1 K/uL (0.0-0.2); BASOPHILS % (AUTO) 0.6 % (0.0-2.0); EOSINOPHILS # (AUTO) 0.1 K/uL (0.0-0.4); EOSINOPHILS % (AUTO) 0.7 % (0.0-4.0); HEMOGLOBIN 7.8 g/dL (12.0-16.0); LYMPHOCYTES # (AUTO) 0.8 K/uL (1.0-5.5); LYMPHOCYTES % (AUTO) 9.3 % (20.5-51.5); MEAN CORPUSCULAR HEMOGLOBIN 31 pg (27-31); MEAN CORPUSCULAR HGB CONC 34 % (32-36); MEAN CORPUSCULAR VOLUME 91 fL (79.0-98.0); MONOCYTES # (AUTO) 0.9 K/uL (0.0-1.0); MONOCYTES % (AUTO) 10.1 % (1.7-9.3); NEUTROPHILS % (AUTO) 79.3 % (40.0-70.0); RED BLOOD CELL COUNT(AUTO) 2.52 MIL/uL (4.2-6.2); RED CELL DISTRIBUTION WIDTH 15.1 % (9.0-15.0); WHITE BLOOD COUNT (AUTO) 8.9 K/uL (4.8-10.8)
[2023-06-07 05:56] LABS: PLATELET COUNT (AUTO) 94 K/uL (130-430)
[2023-06-07 05:57] LABS: ANION GAP 7 (5-15); CHLORIDE 110 mmol/L (98-107); CREATININE 1.09 mg/dL (0.55-1.30); GLUCOSE 140 mg/dL (74-106); UREA NITROGEN, BLOOD 43 mg/dL (8-21)
--- NOTE | 2023-06-07 06:10 | NUR ---
BP 133/65 MAP 90. Levophed drip decrease to 0.11 mcg/kg/min.
--- NOTE | 2023-06-07 07:11 | NUR ---
Care endorsed to JUJU Mera.
[2023-06-07] MEDS: PANTOPRAZOLE SODIUM 40 MG/VIAL (PROTONIX) IVP SCH (08:18)
--- NOTE | 2023-06-07 08:26 | NUR ---
Spoke with Nayeli healthcare partner telehealth case manager and followed up on patient transfer to [facility]. Nayeli stated that transfer is pending the [facility] physician, Dr Ramirez, to call Dr. Hitchcock to discuss the plan of care and accept the patient. Per Nayeli Ramirez was in surgery all day yesterday so did not call and is hoping for progress today. Nayeli stated that Dr. Hitchcock has Dr. Ramirez's phone number and that Dr. Ramirez has Dr. Hitchcock's phone number.
[2023-06-07] MEDS ORDERED: PHYTONADIONE 10 MG/ML AMP SUBCUT ONE (08:45)
[2023-06-07] MEDS: FENTANYL CITRATE-0.9 % NACL/PF 100 ML IV PRN (08:59)
[2023-06-07] MEDS ORDERED: DESMOPRESSIN ACETATE 4 MCG/ML AMP IV ONE (09:00)
[2023-06-07] MEDS ORDERED: DESMOPRESSIN ACETATE IV ONE (10:15)
[2023-06-07] MEDS ORDERED: NS IV ONE (10:15)
[2023-06-07] MEDS: PIPERACILLIN/TAZO 3.375/DEX-IS 50 ML IV SCH ×3 (10:18→21:50)
[2023-06-07 16:34] LABS: HEMATOCRIT 18.3 % (36-48)
--- NOTE | 2023-06-07 17:18 | NUR ---
spoke with Dr. Cruz, notified of hgb [address] Cruz ordered to transfuse 2 units PRBC, transfuse 1 platelet pheresis, give lasix 40 ivp after blood is transfused, have standing order to transfuse 1 unit PRBC if hgb <7, and check hgb/hct Q6H. Also notified that spoke with pillowcase folder Nayeli and was notified that patient has an accepting physician at [facility] and is just waiting on a bed.
--- NOTE | 2023-06-07 18:40 | NUR ---
DR HELLER UPDATED DAUGHTER BAMBI ON PATIENT'S ACCEPTANCE TO [facility] AND THAT PATIENT IS JUST WAITING ON AN AVAILABLE BED FOR TRANSFER.
--- NOTE | 2023-06-07 19:13 | NUR ---
ENDORSED CONTINUATION OF CARE TO JUJU CANTU. NOTIFIED THAT PATIENT IS ACCEPTED BY [facility] KRIS GARDNER. TO CALL TRANSFER CENTER FOR UPDATES AT [phone] AND IF TRANSFER IS CONFIRMED THEN TO CALL [facility] AFTER HOURS AT [phone]. JUJU CANTU RECEIVED FULL REPORT AND VOICED UNDERSTANDING.
--- NOTE | 2023-06-07 19:13 | NUR ---
Report received from JUJU Mera. Patient intubated with 7.5 ETT at 21 CM L/L to vent. Vent settings: AC 18 Vt 400 FiO2 30% PEEP 5. IVF: NS infusion at 100 ml/hr; Levophed drip infusion at 0.07 mcg/kg/min; Versed drip infusion at 4 mg/hr; Fentanyl drip infusion at 30 units/hr. Patient accepted to [facility] with Dr. Orlando Rock accepting MD pending bed availability. Will Transfusie PRBC X 2 units and Platelets X 1 unit. Addendum: 06/07/23 at 1924 by [place], JUJU MATUTE Fentanyl drip 30 mcg/hr.
[2023-06-07] MEDS: MIDAZOLAM IN NACL,ISO-OSMOT/PF 100 ML IV PRN (21:05)
--- NOTE | 2023-06-07 21:06 | NUR ---
Versed drip bag exchanged to new bag and infusion resumed at 4 mg/hr.
--- NOTE | 2023-06-07 21:20 | NUR ---
David from [facility] called and gave bed and unit number: Unit [id number] Bed 1. NATHAN Pringle given information to arrange EMS Transport.
--- NOTE | 2023-06-07 21:30 | NUR ---
PRBC #1 Transfusion begin. See Blood Transfusion Record. BP 157/73 [id number]. Levophed drip decrease to 0.04 mcg/kg/min.
--- NOTE | 2023-06-07 21:47 | NUR ---
[facility] TRANSFER David from [facility] Transfer Center called stating "a bed in unit 74 Bed 1 is available, window for transport is 4 hours". Oriana from [facility] was notified to set-up transport. Oriana was told Pt is orally intubated on ventilator with drips (Levophed, Fentanyl, and Versed)and needs CCT transport. I was told she would be calling me back.
--- NOTE | 2023-06-07 22:05 | NUR ---
Patient's daughter Dolly Denise is called and notified of Accepting Transfer to [facility], Unit [address] Bed 1. Unknown ETA at this time.
--- NOTE | 2023-06-07 22:20 | NUR ---
ASHLYN Lynne from [facility] , returned call with transport information. [facility] with [facility] will be arriving between 2330- 2345 for transport to [facility] unit [address], jasmin.
--- NOTE | 2023-06-07 22:29 | NUR ---
[facility] Bulmaro from [facility] , was updated regarding transport information. Pt will go to Unit 7421 Bed 1 Nurse report number (Nursing Station) , Receiving MD: Dr Orlando Rock.
--- NOTE | 2023-06-07 23:00 | NUR ---
BP 159/77 MAP 110. Levophed drip decrease to 0.02 mcg/kg/min.
--- NOTE | 2023-06-07 23:05 | NUR ---
[facility] arrived at bedside.
--- NOTE | 2023-06-07 23:08 | NUR ---
Report called to [facility] JUJU Fowler. CCTRN listened to report.
--- NOTE | 2023-06-07 23:30 | NUR ---
PRBC #1 Transfusion Complete. No Blood Transfusion Reaction noted. See Blood Transfusion Record.
--- NOTE | 2023-06-07 23:52 | NUR ---
Patient OTD in unstable condition via EMS gurney to [facility].
--- NOTE | 2023-06-07 23:56 | NUR ---
Patient's daughter Dolly Denise called and notified patient left [facility] ICU enroute to [facility].
[2023-06-08] MEDS ORDERED: FUROSEMIDE 40 MG/4 ML VIAL IVP ONE (02:00)
== END 2023-06-07 23:55 | disposition short-term general hospital (02) | DRG 207 ==
LOC: SED 16:08 → SIC 20:45
PROVIDERS: ADMIT Specialist; ATTEND Specialist
PROC: 5A1955Z Respiratory Ventilation, Greater than 96 Consecutive Hours (ICD-10-PCS; principal; 2023-05-31 21:32)
PROC: 30233N1 Transfusion of Nonautologous Red Blood Cells into Peripheral Vein, Percutaneous Approach (ICD-10-PCS; 2023-06-01)
PROC: 0BH17EZ Insertion of Endotracheal Airway into Trachea, Via Natural or Artificial Opening (ICD-10-PCS; 2023-06-01)
PROC: 02HV33Z Insertion of Infusion Device into Superior Vena Cava, Percutaneous Approach (ICD-10-PCS; 2023-06-01)
PROC: B548ZZA Ultrasonography of Superior Vena Cava, Guidance (ICD-10-PCS; 2023-06-01)
PROC: 0B9J8ZX Drainage of Left Lower Lung Lobe, Via Natural or Artificial Opening Endoscopic, Diagnostic (ICD-10-PCS; 2023-06-02)
PROC: 0B9C8ZX Drainage of Right Upper Lung Lobe, Via Natural or Artificial Opening Endoscopic, Diagnostic (ICD-10-PCS; 2023-06-02)
PROC: 0B9G8ZX Drainage of Left Upper Lung Lobe, Via Natural or Artificial Opening Endoscopic, Diagnostic (ICD-10-PCS; 2023-06-02)
PROC: 0B9D8ZX Drainage of Right Middle Lung Lobe, Via Natural or Artificial Opening Endoscopic, Diagnostic (ICD-10-PCS; 2023-06-02)
PROC: 0B9H8ZX Drainage of Lung Lingula, Via Natural or Artificial Opening Endoscopic, Diagnostic (ICD-10-PCS; 2023-06-02)
PROC: 0B9F8ZX Drainage of Right Lower Lung Lobe, Via Natural or Artificial Opening Endoscopic, Diagnostic (ICD-10-PCS; 2023-06-02)
DX: J96.00 Acute respiratory failure, unspecified whether with hypoxia or hypercapnia (principal); J69.0 Pneumonitis due to inhalation of food and vomit; E87.1 Hypo-osmolality and hyponatremia; D62 Acute posthemorrhagic anemia; D63.0 Anemia in neoplastic disease; C11.9 Malignant neoplasm of nasopharynx, unspecified; C10.9 Malignant neoplasm of oropharynx, unspecified; Z20.822 Contact with and (suspected) exposure to COVID-19; F41.9 Anxiety disorder, unspecified; R00.1 Bradycardia, unspecified; E78.00 Pure hypercholesterolemia, unspecified; I10 Essential (primary) hypertension; J44.9 Chronic obstructive pulmonary disease, unspecified; Z86.73 Personal history of transient ischemic attack (TIA), and cerebral infarction without residual deficits; Z87.891 Personal history of nicotine dependence; Z92.3 Personal history of irradiation; Z92.21 Personal history of antineoplastic chemotherapy; Z79.899 Other long term (current) drug therapy; Z93.1 Gastrostomy status
CPT/HCPCS: 36415; 36600; 70491-TC; 71045; 71275; 74175; 76376; 80048; 80053; 81003; 82550; 82803; 83051; 83735; 83880; 84100; 84484; 85014; 85018; 85025; 85610-TC; 85730-TC; 86886; 86900; 86901; 86920; 87040; 87070-TC; 87081; 87205-TC; 94002; 94003; 94640; 94760; 96365; 96375; 99291; 99292; C1751; C9113; J0696; J2060; J2405; J2543; J2597; J3010; J3430; J3465; J3480; J3490; J7030; J7050; J7060; J7120; P9021; P9046; Q9967

== ENCOUNTER → 2023-07-18 | Emergency (ER) | payer OTHER, MEDICAID ==
[~2023-07-18] VITALS: Ht 154.9 cm; Wt 56.7 kg
[~2023-07-18] MED LIST changes: +DIPH25CA83 PO; +DIPHENHYDRAMINE INJ 50 MG/ML VIAL IVP ONE; +FAMOTIDINE PF 20 MG/2 ML VIAL IVP ONE; +PRED50TA PO; +methylPREDNISolone SOD SUCC/PF 62.5 MG/ML VIAL IVP ONE
[2023-07-18 14:16] VITALS: BP_SYST 140; PULSE 72; RESP 20; TEMP 98.3; O2SAT 98
[2023-07-18 15:41] LABS: HEMOGLOBIN 9.6 g/dL (12.0-16.0); PLATELET COUNT (AUTO) 111 K/uL (130-430); WHITE BLOOD COUNT (AUTO) 4.3 K/uL (4.8-10.8)
[2023-07-18 15:47] LABS: BASOPHILS % (AUTO) 0.9 % (0.0-2.0); EOSINOPHILS % (AUTO) 0.1 % (0.0-4.0); HEMATOCRIT 28.5 % (36-48); LYMPHOCYTES # (AUTO) 0.9 K/uL (1.0-5.5); LYMPHOCYTES % (AUTO) 20.2 % (20.5-51.5); MEAN CORPUSCULAR HEMOGLOBIN 31 pg (27-31); MEAN CORPUSCULAR HGB CONC 34 % (32-36); MEAN CORPUSCULAR VOLUME 93 fL (79.0-98.0); MONOCYTES # (AUTO) 0.7 K/uL (0.0-1.0); MONOCYTES % (AUTO) 16.2 % (1.7-9.3); NEUTROPHILS # (AUTO) 2.7 K/uL (1.8-7.7); NEUTROPHILS % (AUTO) 62.6 % (40.0-70.0); RED BLOOD CELL COUNT(AUTO) 3.07 MIL/uL (4.2-6.2)
[2023-07-18 15:49] LABS: ANION GAP 6 (5-15); CALCIUM 9.1 mg/dL (8.4-11.0); CARBON DIOXIDE 31 mmol/L (23-29); CHLORIDE 93 mmol/L (98-107); CREATININE 0.75 mg/dL (0.55-1.30); GLUCOSE 99 mg/dL (74-106); POTASSIUM 3.7 mmol/L (3.5-5.1); SODIUM SERUM 130 mmol/L (136-145); UREA NITROGEN, BLOOD 17 mg/dL (8-21)
[2023-07-18 15:53] LABS: PROTHROMBIN TIME 10.8 SECS (9.5-12.5)
[2023-07-18 15:54] LABS: ALANINE AMINOTRANSFERASE 12 U/L (12-78); ALBUMIN 3.2 g/dL (3.4-4.8); ASPARTATE AMINOTRANSFERASE 13 U/L (10-37); TOTAL BILIRUBIN 0.5 mg/dL (0.0-1.0); TOTAL PROTEIN, SERUM 6.4 g/dL (6.4-8.3)
[2023-07-18 17:23] VITALS: BP_SYST 131; PULSE 67; RESP 18; TEMP 99; O2SAT 99
== END | disposition home or self-care (01) ==
LOC: SED 13:43
DX: K14.8 Other diseases of tongue (principal); C32.9 Malignant neoplasm of larynx, unspecified; R06.02 Shortness of breath; I10 Essential (primary) hypertension; Z79.899 Other long term (current) drug therapy
CPT/HCPCS: 99283; 96374; 96375; 80053; 85025; 85610; 85730; 36415; J1200; J3490; J2930

== ENCOUNTER 2023-10-19 08:19 | Day surgery (SDC) | payer OTHER, MEDICAID ==
[~2023-10-19 08:19] MED LIST changes: -DIPHENHYDRAMINE INJ 50 MG/ML VIAL IVP ONE; -FAMOTIDINE PF 20 MG/2 ML VIAL IVP ONE; -MIRT-114 PO; +MIRT-147 PO; -methylPREDNISolone SOD SUCC/PF 62.5 MG/ML VIAL IVP ONE
[2023-10-19 14:00] VITALS: BP_SYST 121; PULSE 67; RESP 16; TEMP 98.2; O2SAT 98
== END 2023-10-19 10:17 | disposition home or self-care (01) ==
LOC: SDS 08:19 → SMU 08:20 → SDS 10:17
PROVIDERS: ATTEND Student in an Organized Health Care Education/Training Program
DX: Z43.1 Encounter for attention to gastrostomy (principal)